=== PATIENT | female | born 1945 | race African-American/Black ===

== ENCOUNTER 2017-11-11 14:25 | Inpatient (IN) | payer OTHER ==
[~2017-11-11] VITALS: Ht 152.4 cm; Wt 80.8 kg
[~2017-11-11 14:25] MED LIST: ASPI-1159 PO; ATOR-2 PO; CARV6.2548 PO; CLOP75TA33 PO; ERGO500013 PO; FURO40TA5 PO; GABA-531 PO; HYDR-4134 PO; INSU100I13 SQ; INSU100I28 SQ; ISOS40TA17 PO; LEVO125T8 PO; MULT-1131 PO; POTA10CA42 PO; SYN150 PO; SYN200 PO
[2017-11-11] MEDS ORDERED: NITROGLYCERIN 0.4MG TABLET SL SL PRN (14:45)
[2017-11-11] MEDS ORDERED: ASPIRIN 81MG TABLET PO ONE (14:45)
[2017-11-11 15:41] LABS: BASOPHILS % 0.9 % (0.0-2.0); EOSINOPHILS % 0.2 % (0.0-5.0); HEMATOCRIT. 33.9 % (36.0-48.0); HEMOGLOBIN. 11.4 g/dL (12.0-16.0); LYMPHOCYTES % 21.3 % (20.0-50.0); MEAN CORPUSCULAR HEMOGLOBIN 29.8 pg (28.0-32.0); MEAN CORPUSCULAR VOLUME 88.6 fL (81.0-99.0); MEAN PLATELET VOLUME 8.7 fl (7.4-10.4); MONOCYTES % 6.9 % (2.0-8.0); NEUTROPHILS % 70.7 % (40.0-76.0); PLATELET 307 x1000/uL (130-400); RED BLOOD CELL COUNT 3.82 mill/uL (4.2-5.4); RED CELL DISTRIBUTION WIDTH 13.3 % (11.6-14.6)
[2017-11-11 15:47] LABS: CHLORIDE 100 mEq/L (98-107)
[2017-11-11 15:48] LABS: PROTHROMBIN TIME 10.5 sec (9.4-11.6)
[2017-11-11] MEDS ORDERED: ENOXAPARIN 80MG/0.8ML SYR SUBCUT ONE (17:30)
[2017-11-11] MEDS ORDERED: FUROSEMIDE 40MG/4ML VIAL IVP ONE (17:30)
[2017-11-11] MEDS ORDERED: ONDANSETRON HCL 4MG/2ML VIAL IV ONE (20:30)
[2017-11-11] MEDS ORDERED: ONDANSETRON HCL 4MG/2ML VIAL IV PRN (21:00)
[2017-11-11] MEDS ORDERED: HYDROCODONE/ACETAMINOPHEN 5/325MG TABLET PO PRN (21:00)
[2017-11-11] MEDS ORDERED: DOCUSATE SODIUM 100MG CAPSULE PO PRN (21:00)
[2017-11-11] MEDS ORDERED: ACETAMINOPHEN 325MG TABLET PO PRN (21:00)
[2017-11-11 22:37] VITALS: BP 139/76
[2017-11-11 22:40] VITALS: BP 139/76
[2017-11-12] VITALS (27 sets, daily range): BP systolic 96–143; BP diastolic 55–88
[2017-11-12 01:10] LABS: CREATINE KINASE MB FRACTION 7.6 ng/mL (0.5-3.6)
[2017-11-12 06:56] LABS: BASOPHILS % 0.4 % (0.0-2.0); EOSINOPHILS % 0.6 % (0.0-5.0); HEMATOCRIT. 29.5 % (36.0-48.0); HEMOGLOBIN. 10.3 g/dL (12.0-16.0); LYMPHOCYTES % 15.3 % (20.0-50.0); MEAN CORPUSCULAR HEMOGLOBIN 30.5 pg (28.0-32.0); MEAN CORPUSCULAR VOLUME 87.4 fL (81.0-99.0); MEAN PLATELET VOLUME 9.4 fl (7.4-10.4); MONOCYTES % 5.5 % (2.0-8.0); NEUTROPHILS % 78.2 % (40.0-76.0); PLATELET 268 x1000/uL (130-400); RED BLOOD CELL COUNT 3.37 mill/uL (4.2-5.4); RED CELL DISTRIBUTION WIDTH 12.9 % (11.6-14.6)
[2017-11-12 07:11] LABS: CHLORIDE 98 mEq/L (98-107)
[2017-11-12 07:28] LABS: LDL CHOLESTEROL 108 mg/dL (5-100)
[2017-11-12 07:30] LABS: CREATINE KINASE 167 IU/L (26-192); HDL CHOLESTEROL 52 mg/dL (40-59)
[2017-11-12 07:33] LABS: CREATINE KINASE MB FRACTION 5.7 ng/mL (0.5-3.6)
[2017-11-12] MEDS ORDERED: FUROSEMIDE 40MG/4ML VIAL IV SCH (09:00)
[2017-11-12] MEDS ORDERED: ENOXAPARIN 40MG/0.4ML SYR SUBCUT SCH (09:00)
[2017-11-12] MEDS ORDERED: ASPIRIN 81MG EC TABLET PO SCH (09:00)
[2017-11-12] MEDS ORDERED: HEPARIN SODIUM 1,000 UNIT/1ML VIAL IV ONE (13:15)
[2017-11-12] MEDS ORDERED: NITROGLYCERIN 0.2MG/HR PATCH TOP SCH (13:45)
[2017-11-12] MEDS ORDERED: ENOXAPARIN 100MG/ML SYR SUBCUT SCH (14:00)
[2017-11-12] MEDS ORDERED: NITROGLYCERIN 50MCG/ML 10ML VIAL (CATH LAB) IV ONE (14:12)
[2017-11-12] MEDS ORDERED: NICARDIPINE 100MCG/ML 10ML VIAL (CATH LAB) IV ONE (14:12)
[2017-11-12] MEDS ORDERED: NITROGLYCERIN 0.4MG TABLET SL SL PRN (14:30)
[2017-11-12] MEDS ORDERED: NITROGLYCERIN 0.4MG TABLET SL SL NR (14:30)
[2017-11-12] MEDS: BLOOD SUGAR DIAGNOSTIC STRIP TEST SCH ×3 (15:00→21:09)
[2017-11-12] MEDS ORDERED: DEXTROSE 50% WATER 50ML SYRINGE IV PRN (15:15)
[2017-11-12] MEDS ORDERED: IODIXANOL 320MG/ML 100 ML BOTTLE IV ONE (15:26)
[2017-11-12] MEDS ORDERED: MIDAZOLAM HCL 2 MG/2 ML VIAL ONE (15:39)
[2017-11-12] MEDS ORDERED: FENTANYL CITRATE/PF 50MCG/ML 2ML VIAL ONE (15:39)
[2017-11-12] MEDS ORDERED: LIDOCAINE HCL/PF 1% 10 MG/ML 5ML VIAL ONE (15:40)
[2017-11-12] MEDS ORDERED: FUROSEMIDE 40MG/4ML VIAL ONE (16:04)
[2017-11-12] MEDS ORDERED: KCL 20MEQ/100ML PREMIX 100 ML IV ONE (16:12)
[2017-11-12] MEDS ORDERED: IOHEXOL-300 100 ML BOTTLE ONE (16:25)
[2017-11-12] MEDS ORDERED: IODIXANOL 320MG/ML 200ML BOTTLE ONE (16:35)
[2017-11-12] MEDS ORDERED: METOPROLOL TARTRATE 5MG/5ML VIAL IV ONE (16:45)
[2017-11-12] MEDS ORDERED: ASPIRIN 325MG TABLET ONE (16:57)
[2017-11-12] MEDS ORDERED: CLOPIDOGREL 75MG TABLET ONE (16:58)
[2017-11-12] MEDS ORDERED: ONDANSETRON HCL 4MG/2ML VIAL IV PRN (17:15)
[2017-11-12] MEDS ORDERED: ATROPINE SULFATE 1MG/10ML SYR IV PRN (17:15)
[2017-11-12] MEDS ORDERED: ACETAMINOPHEN 325MG TABLET PO PRN (17:15)
[2017-11-12] MEDS: INSULIN LISPRO 100 UNITS/ML SUBCUT SCH ×3 (18:20→21:12)
[2017-11-12] MEDS: MORPHINE SULFATE 4 MG/ML CPJ (NOT FOR IM USE) IV PRN (18:52)
[2017-11-12] MEDS ORDERED: CARVEDILOL 3.125 MG TABLET PO SCH (21:00)
[2017-11-12] MEDS: CARVEDILOL 6.25 MG TABLET PO SCH (21:00)
[2017-11-12] MEDS: ATORVASTATIN CALCIUM 20MG TABLET PO SCH (21:13)
[2017-11-12] MEDS: NITROGLYCERIN OINT 1GM/INCH UDPKT TD SCH (22:00)
[2017-11-13] VITALS (25 sets, daily range): BP systolic 91–128; BP diastolic 39–78
[2017-11-13 05:57] LABS: BASOPHILS % 0.5 % (0.0-2.0); EOSINOPHILS % 0.4 % (0.0-5.0); HEMATOCRIT. 27.6 % (36.0-48.0); HEMOGLOBIN. 9.5 g/dL (12.0-16.0); LYMPHOCYTES % 20.3 % (20.0-50.0); MEAN CORPUSCULAR HEMOGLOBIN 30.3 pg (28.0-32.0); MEAN CORPUSCULAR VOLUME 87.5 fL (81.0-99.0); MEAN PLATELET VOLUME 9.4 fl (7.4-10.4); MONOCYTES % 7.7 % (2.0-8.0); NEUTROPHILS % 71.1 % (40.0-76.0); PLATELET 256 x1000/uL (130-400); RED BLOOD CELL COUNT 3.15 mill/uL (4.2-5.4); RED CELL DISTRIBUTION WIDTH 12.6 % (11.6-14.6)
[2017-11-13] MEDS: NITROGLYCERIN OINT 1GM/INCH UDPKT TD SCH ×3 (06:00→22:00)
[2017-11-13] MEDS: BLOOD SUGAR DIAGNOSTIC STRIP TEST SCH ×4 (07:38→21:12)
[2017-11-13] MEDS: CARVEDILOL 6.25 MG TABLET PO SCH ×2 (08:21→21:12)
[2017-11-13] MEDS: FUROSEMIDE 40MG/4ML VIAL IVP SCH ×2 (08:21→17:25)
[2017-11-13] MEDS: ASPIRIN 325MG TABLET PO SCH (08:21)
[2017-11-13] MEDS: CLOPIDOGREL 75MG TABLET PO SCH (08:22)
[2017-11-13] MEDS: LISINOPRIL 5MG TABLET PO SCH (08:22)
[2017-11-13] MEDS: INSULIN LISPRO 100 UNITS/ML SUBCUT SCH ×4 (08:30→22:56)
[2017-11-13] MEDS ORDERED: CLOPIDOGREL 75MG TABLET PO SCH (09:00)
[2017-11-13] MEDS: ATORVASTATIN CALCIUM 20MG TABLET PO SCH (21:11)
[2017-11-13] MEDS: INSULIN GLARGINE UD 100 UNITS/ML SYR SUBCUT SCH (22:55)
[2017-11-14] VITALS (12 sets, daily range): BP systolic 94–112; BP diastolic 55–68
[2017-11-14] MEDS: MORPHINE SULFATE 4 MG/ML CPJ (NOT FOR IM USE) IV PRN (06:03)
[2017-11-14] MEDS: NITROGLYCERIN OINT 1GM/INCH UDPKT TD SCH ×3 (06:12→22:00)
[2017-11-14] MEDS: BLOOD SUGAR DIAGNOSTIC STRIP TEST SCH ×4 (06:12→21:42)
[2017-11-14 06:25] LABS: BASOPHILS % 0.6 % (0.0-2.0); EOSINOPHILS % 0.5 % (0.0-5.0); HEMATOCRIT. 25.7 % (36.0-48.0); HEMOGLOBIN. 8.9 g/dL (12.0-16.0); LYMPHOCYTES % 21.8 % (20.0-50.0); MEAN CORPUSCULAR HEMOGLOBIN 30.3 pg (28.0-32.0); MEAN CORPUSCULAR VOLUME 87.4 fL (81.0-99.0); MEAN PLATELET VOLUME 9.2 fl (7.4-10.4); MONOCYTES % 9.9 % (2.0-8.0); NEUTROPHILS % 67.2 % (40.0-76.0); PLATELET 229 x1000/uL (130-400); RED BLOOD CELL COUNT 2.95 mill/uL (4.2-5.4); RED CELL DISTRIBUTION WIDTH 12.8 % (11.6-14.6)
[2017-11-14] MEDS: INSULIN LISPRO 100 UNITS/ML SUBCUT SCH ×4 (06:25→21:00)
[2017-11-14] MEDS: ASPIRIN 325MG TABLET PO SCH (08:05)
[2017-11-14] MEDS: CLOPIDOGREL 75MG TABLET PO SCH (08:05)
[2017-11-14] MEDS: FUROSEMIDE 40MG/4ML VIAL IVP SCH (08:05)
[2017-11-14] MEDS: CARVEDILOL 6.25 MG TABLET PO SCH (08:06)
[2017-11-14] MEDS: LISINOPRIL 5MG TABLET PO SCH (09:00)
[2017-11-14] MEDS: SODIUM CHLORIDE 0.9% 1,000 ML IV SCH (13:31)
[2017-11-14 17:00] LABS: CLARITY URINE CLOUDY (CLEAR); COLOR URINE YELLOW (YELLOW); KETONES URINE NEGATIVE (NEGATIVE); LEUKOCYTE ESTERASE URINE TRACE (NEGATIVE); NITRITE URINE NEGATIVE (NEGATIVE); OCCULT BLOOD URINE 2+ (NEGATIVE); PROTEIN URINE 4+ (NEGATIVE); SPECIFIC GRAVITY URINE 1.023 (1.005-1.030); UROBILINOGEN URINE 0.2 E.U./dL (0.2-1.0)
[2017-11-14 17:20] LABS: BASOPHILS % 0.8 % (0.0-2.0); EOSINOPHILS % 0.9 % (0.0-5.0); HEMATOCRIT. 26.6 % (36.0-48.0); HEMOGLOBIN. 9.1 g/dL (12.0-16.0); LYMPHOCYTES % 30.5 % (20.0-50.0); MEAN CORPUSCULAR HEMOGLOBIN 30.1 pg (28.0-32.0); MEAN CORPUSCULAR VOLUME 87.9 fL (81.0-99.0); NEUTROPHILS % 57.8 % (40.0-76.0); PLATELET 227 x1000/uL (130-400); RED BLOOD CELL COUNT 3.03 mill/uL (4.2-5.4); RED CELL DISTRIBUTION WIDTH 13.2 % (11.6-14.6)
[2017-11-14] MEDS ORDERED: CEFEPIME HCL 1000MG/VIAL INJ IM SCH (21:00)
[2017-11-14] MEDS: CARVEDILOL 3.125 MG TABLET PO SCH (21:41)
[2017-11-14] MEDS: ATORVASTATIN CALCIUM 20MG TABLET PO SCH (21:42)
[2017-11-14] MEDS: INSULIN GLARGINE UD 100 UNITS/ML SYR SUBCUT SCH (21:54)
[2017-11-14] MEDS: CEFEPIME 1,000 MG in DEXTROSE 5% WATER 50 ML IV SCH (22:28)
[2017-11-15] VITALS (12 sets, daily range): BP systolic 105–128; BP diastolic 45–78
[2017-11-15] MEDS: SODIUM CHLORIDE 0.9% 1,000 ML IV SCH ×2 (03:53→15:32)
[2017-11-15] MEDS: NITROGLYCERIN OINT 1GM/INCH UDPKT TD SCH ×3 (06:00→21:08)
[2017-11-15] MEDS: BLOOD SUGAR DIAGNOSTIC STRIP TEST SCH ×4 (06:30→21:05)
[2017-11-15 06:35] LABS: BASOPHILS % 0.5 % (0.0-2.0); HEMATOCRIT. 25.2 % (36.0-48.0); HEMOGLOBIN. 8.8 g/dL (12.0-16.0); LYMPHOCYTES % 29.8 % (20.0-50.0); MEAN CORPUSCULAR HEMOGLOBIN 30.5 pg (28.0-32.0); MEAN CORPUSCULAR VOLUME 87.1 fL (81.0-99.0); MEAN PLATELET VOLUME 9.2 fl (7.4-10.4); MONOCYTES % 8.9 % (2.0-8.0); NEUTROPHILS % 59.8 % (40.0-76.0); PLATELET 225 x1000/uL (130-400)
[2017-11-15] MEDS: INSULIN LISPRO 100 UNITS/ML SUBCUT SCH ×4 (07:20→21:09)
[2017-11-15] MEDS: MORPHINE SULFATE 4 MG/ML CPJ (NOT FOR IM USE) IV PRN (07:52)
[2017-11-15] MEDS: ASPIRIN 325MG TABLET PO SCH (08:29)
[2017-11-15] MEDS: CARVEDILOL 3.125 MG TABLET PO SCH ×2 (08:29→21:08)
[2017-11-15] MEDS: CLOPIDOGREL 75MG TABLET PO SCH (08:29)
[2017-11-15] MEDS ORDERED: LISINOPRIL 5MG TABLET PO SCH (09:00)
[2017-11-15] MEDS: CEFEPIME 1,000 MG in DEXTROSE 5% WATER 50 ML IV SCH (21:05)
[2017-11-15] MEDS: ATORVASTATIN CALCIUM 20MG TABLET PO SCH (21:05)
[2017-11-15] MEDS: INSULIN GLARGINE UD 100 UNITS/ML SYR SUBCUT SCH (21:09)
[2017-11-16] VITALS (14 sets, daily range): BP systolic 115–130; BP diastolic 67–79
[2017-11-16] MEDS: SODIUM CHLORIDE 0.9% 1,000 ML IV SCH ×2 (05:50→21:43)
[2017-11-16] MEDS: NITROGLYCERIN OINT 1GM/INCH UDPKT TD SCH ×3 (05:54→21:38)
[2017-11-16] MEDS: BLOOD SUGAR DIAGNOSTIC STRIP TEST SCH ×4 (05:55→21:39)
[2017-11-16] MEDS: INSULIN LISPRO 100 UNITS/ML SUBCUT SCH ×4 (06:23→21:00)
[2017-11-16 06:59] LABS: HEMATOCRIT 27.3 % (36.0-48.0); HEMOGLOBIN 9.6 g/dL (12.0-16.0); MEAN CORPUSCULAR HEMOGLOBIN 30.3 pg (28.0-32.0); MEAN CORPUSCULAR VOLUME 86.3 fL (81.0-99.0); PLATELET 261 x1000/uL (130-400); RED BLOOD CELL COUNT 3.16 mill/uL (4.2-5.4); RED CELL DISTRIBUTION WIDTH 12.9 % (11.6-14.6)
[2017-11-16] MEDS: ASPIRIN 325MG TABLET PO SCH (08:00)
[2017-11-16] MEDS: CARVEDILOL 3.125 MG TABLET PO SCH ×2 (08:00→21:37)
[2017-11-16] MEDS: CLOPIDOGREL 75MG TABLET PO SCH (08:00)
[2017-11-16] MEDS: ATORVASTATIN CALCIUM 20MG TABLET PO SCH (21:37)
[2017-11-16] MEDS: CEFEPIME 1,000 MG in DEXTROSE 5% WATER 50 ML IV SCH (21:43)
[2017-11-16] MEDS: INSULIN GLARGINE UD 100 UNITS/ML SYR SUBCUT SCH (21:45)
[2017-11-17] VITALS (9 sets, daily range): BP systolic 105–150; BP diastolic 62–95
[2017-11-17] MEDS: NITROGLYCERIN OINT 1GM/INCH UDPKT TD SCH ×2 (05:45→13:36)
[2017-11-17] MEDS: BLOOD SUGAR DIAGNOSTIC STRIP TEST SCH ×2 (05:56→12:17)
[2017-11-17 06:54] LABS: BASOPHILS % 0.6 % (0.0-2.0); EOSINOPHILS % 0.9 % (0.0-5.0); HEMATOCRIT. 25.9 % (36.0-48.0); HEMOGLOBIN. 9.1 g/dL (12.0-16.0); LYMPHOCYTES % 24.9 % (20.0-50.0); MEAN CORPUSCULAR HEMOGLOBIN 30.6 pg (28.0-32.0); MEAN CORPUSCULAR VOLUME 87.1 fL (81.0-99.0); MEAN PLATELET VOLUME 8.9 fl (7.4-10.4); MONOCYTES % 8.2 % (2.0-8.0); NEUTROPHILS % 65.4 % (40.0-76.0); PLATELET 288 x1000/uL (130-400); RED BLOOD CELL COUNT 2.97 mill/uL (4.2-5.4); RED CELL DISTRIBUTION WIDTH 12.8 % (11.6-14.6)
[2017-11-17 07:01] LABS: CHLORIDE 105 mEq/L (98-107)
[2017-11-17] MEDS: INSULIN LISPRO 100 UNITS/ML SUBCUT SCH ×2 (07:20→12:20)
[2017-11-17] MEDS: ASPIRIN 325MG TABLET PO SCH (08:04)
[2017-11-17] MEDS: CLOPIDOGREL 75MG TABLET PO SCH (08:05)
[2017-11-17] MEDS: CARVEDILOL 3.125 MG TABLET PO SCH (08:05)
[2017-11-17] MEDS ORDERED: POTASSIUM CHLORIDE 20MEQ TABLET SR PO SCH (08:30)
[2017-11-17] MEDS ORDERED: FLUCONAZOLE 100MG/50ML PREMIX IV ONE (11:30)
[2017-11-17] MEDS ORDERED: FLUCONAZOLE 100MG/50ML in BAG IV NR (14:00)
[2017-11-18] MEDS ORDERED: ASPI-867 MT (15:26)
[2017-11-18] MEDS ORDERED: CARV3.1242 MT (15:26)
[2017-11-18] MEDS ORDERED: LEVO150T8 MT (15:26)
[2017-11-18] MEDS ORDERED: ATOR20TA65 MT (15:26)
== END 2017-11-17 16:10 | disposition home health service (06) | DRG 246 ==
LOC: ER 14:25 → EDBEDREQ 17:46 → EDBEDREQTM 17:46 → CANRESERV 19:52 → ENRESERV 19:52 → EDBEDREQTM 20:15 → EDBEDREQSVC 20:15 → EDBEDREQ 20:15 → ENRESERV 20:23 → 5EST 22:12 → EDBEDREQTM 22:17 → CVICU 11-12 16:40 → 3WST 11-13 18:21
PROVIDERS: ADMIT Hospitalist; ATTEND Hospitalist
PROC: 4A023N7 Measurement of Cardiac Sampling and Pressure, Left Heart, Percutaneous Approach (ICD-10-PCS; principal; 2017-11-12)
PROC: 027034Z Dilation of Coronary Artery, One Artery with Drug-eluting Intraluminal Device, Percutaneous Approach (ICD-10-PCS; 2017-11-12)
PROC: B2111ZZ Fluoroscopy of Multiple Coronary Arteries using Low Osmolar Contrast (ICD-10-PCS; 2017-11-12)
DX: I21.4 Non-ST elevation (NSTEMI) myocardial infarction (principal); I50.31 Acute diastolic (congestive) heart failure; I13.0 Hypertensive heart and chronic kidney disease with heart failure and stage 1 through stage 4 chronic kidney disease, or unspecified chronic kidney disease; N17.9 Acute kidney failure, unspecified; N39.0 Urinary tract infection, site not specified; E87.1 Hypo-osmolality and hyponatremia; B49 Unspecified mycosis; R80.9 Proteinuria, unspecified; D64.9 Anemia, unspecified; Z82.49 Family history of ischemic heart disease and other diseases of the circulatory system; L50.9 Urticaria, unspecified; I25.2 Old myocardial infarction; I25.110 Atherosclerotic heart disease of native coronary artery with unstable angina pectoris; E78.00 Pure hypercholesterolemia, unspecified; N18.1 Chronic kidney disease, stage 1; E11.22 Type 2 diabetes mellitus with diabetic chronic kidney disease; E78.5 Hyperlipidemia, unspecified; Z88.0 Allergy status to penicillin; Z88.2 Allergy status to sulfonamides; Z79.4 Long term (current) use of insulin; Z79.82 Long term (current) use of aspirin; Z90.710 Acquired absence of both cervix and uterus; Z95.5 Presence of coronary angioplasty implant and graft; Z79.899 Other long term (current) drug therapy; Z85.42 Personal history of malignant neoplasm of other parts of uterus; Z98.1 Arthrodesis status; Z83.6 Family history of other diseases of the respiratory system
CPT/HCPCS: 36415; 71045; 76770; 80048; 80053; 80061; 81003; 82550; 82553; 82570; 82962; 83735; 83880; 84156; 84484; 85025; 85027; 85347; 85610; 87086; 92928; 93005; 93306; 93458; 93970; 96374; 96376; 97162; 97166; 99291; C1725; C1760; C1769; C1874; C1887; C1893; J0692; J1450; J1644; J1650; J1815; J1940; J2250; J2270; J2405; J3010; J3480; J3490; J7030; J7060; Q9967; A4315

== ENCOUNTER 2017-12-13 00:53 | Inpatient (IN) | payer OTHER ==
[~2017-12-13] VITALS: Ht 152.4 cm; Wt 84.4 kg
[~2017-12-13 00:53] MED LIST changes: -ASPI-1159 PO; +ASPI-867 MT; -ATOR-2 PO; +ATOR20TA65 MT; +CARV3.1242 MT; -CARV6.2548 PO; -HYDR-4134 PO; -LEVO125T8 PO; +LEVO150T8 MT; -POTA10CA42 PO; -SYN150 PO; -SYN200 PO
[2017-12-13] MEDS ORDERED: ACETAMINOPHEN 325MG TABLET PO STA (01:20)
[2017-12-13] MEDS ORDERED: NITROGLYCERIN OINT 1GM/INCH UDPKT TD ONE (01:30)
[2017-12-13] MEDS ORDERED: ASPIRIN 81MG TABLET PO ONE (01:30)
[2017-12-13] MEDS ORDERED: LEVOFLOXACIN 750MG PREMIX 150 ML IV ONE (02:15)
[2017-12-13] MEDS ORDERED: ALBUTEROL (0.083%) 2.5MG/3ML NEB HHN STA (02:56)
[2017-12-13] MEDS ORDERED: IPRATROPIUM BROMIDE (0.02%) 0.5MG/2.5ML NEB HHN STA (02:56)
[2017-12-13 03:01] LABS: CHLORIDE 97 mEq/L (98-107)
[2017-12-13 03:02] LABS: BASOPHILS % 0.7 % (0.0-2.0); EOSINOPHILS % 0.3 % (0.0-5.0); HEMOGLOBIN. 9.6 g/dL (12.0-16.0); LYMPHOCYTES % 11.3 % (20.0-50.0); MEAN CORPUSCULAR HEMOGLOBIN 30.3 pg (28.0-32.0); MEAN PLATELET VOLUME 9.7 fl (7.4-10.4); MONOCYTES % 4.8 % (2.0-8.0); NEUTROPHILS % 82.9 % (40.0-76.0); PLATELET 224 x1000/uL (130-400); RED BLOOD CELL COUNT 3.18 mill/uL (4.2-5.4); RED CELL DISTRIBUTION WIDTH 13.6 % (11.6-14.6)
[2017-12-13 03:03] LABS: INR 1.1; PROTHROMBIN TIME 11.1 sec (9.4-11.6)
[2017-12-13 03:05] LABS: ETHANOL BLOOD < 10 mg/dL
[2017-12-13] MEDS ORDERED: ACETAMINOPHEN 325MG TABLET ONE (03:26)
[2017-12-13] MEDS ORDERED: INSULIN REGULAR (HUMULIN R) 300UNITS/3ML SUBCUT SCH (05:46)
[2017-12-13] MEDS ORDERED: ONDANSETRON HCL 4MG/2ML VIAL IV PRN (06:15)
[2017-12-13] MEDS ORDERED: ACETAMINOPHEN 325MG TABLET PO PRN (06:15)
[2017-12-13] MEDS ORDERED: DOCUSATE SODIUM 100MG CAPSULE PO PRN (06:15)
[2017-12-13] MEDS ORDERED: CLONIDINE 0.1MG TABLET PO PRN (06:15)
[2017-12-13 07:40] VITALS: BP 143/82
[2017-12-13 08:00] VITALS: BP 143/82
[2017-12-13] MEDS: AMLODIPINE 10MG TABLET PO SCH (08:59)
[2017-12-13] MEDS ORDERED: ASPIRIN 81MG EC TABLET PO SCH (09:00)
[2017-12-13] MEDS ORDERED: FUROSEMIDE 40MG/4ML VIAL IV SCH ×2 (09:00→17:00)
[2017-12-13] MEDS ORDERED: ONDANSETRON 4MG ODT PO PRN (09:00)
[2017-12-13] MEDS: CLOPIDOGREL 75MG TABLET PO SCH (09:00)
[2017-12-13] MEDS ORDERED: NON FORMULARY PATIENT HOME MED EA XX SCH (11:00)
[2017-12-13] MEDS: INSULIN GLARGINE UD 100 UNITS/ML SYR SUBCUT SCH (11:27)
[2017-12-13] MEDS: LEVOTHYROXINE SODIUM 150MCG TABLET PO SCH (11:27)
[2017-12-13] MEDS: SPIRONOLACTONE 25MG TABLET PO SCH ×2 (11:29→16:46)
[2017-12-13 12:00] VITALS: BP 114/60
[2017-12-13 12:32] VITALS: BP 114/60
[2017-12-13] MEDS: BLOOD SUGAR DIAGNOSTIC STRIP TEST SCH ×3 (13:00→21:40)
[2017-12-13] MEDS ORDERED: DEXTROSE 50% WATER 50ML SYRINGE IV PRN (13:00)
[2017-12-13] MEDS: INSULIN LISPRO 100 UNITS/ML SUBCUT SCH ×3 (13:08→21:00)
[2017-12-13] MEDS: HYDROCODONE/ACETAMINOPHEN 5/325MG TABLET PO PRN (14:08)
[2017-12-13 16:00] VITALS: BP 97/59
[2017-12-13] MEDS: FUROSEMIDE 40MG/4ML VIAL IV SCH (16:45)
[2017-12-13 20:18] VITALS: BP 108/109
[2017-12-13] MEDS: ATORVASTATIN CALCIUM 20MG TABLET PO SCH (21:50)
[2017-12-14] VITALS: BP 101/51
[2017-12-14 04:00] VITALS: BP 104/60
[2017-12-14] MEDS: HYDROCODONE/ACETAMINOPHEN 5/325MG TABLET PO PRN (05:11)
[2017-12-14] MEDS: BLOOD SUGAR DIAGNOSTIC STRIP TEST SCH ×4 (05:19→21:24)
[2017-12-14 06:57] LABS: CLARITY URINE CLEAR (CLEAR); COLOR URINE YELLOW (YELLOW); KETONES URINE NEGATIVE (NEGATIVE); LEUKOCYTE ESTERASE URINE TRACE (NEGATIVE); NITRITE URINE NEGATIVE (NEGATIVE); OCCULT BLOOD URINE NEGATIVE (NEGATIVE); PROTEIN URINE 2+ (NEGATIVE); SPECIFIC GRAVITY URINE 1.014 (1.005-1.030); UROBILINOGEN URINE 0.2 E.U./dL (0.2-1.0)
[2017-12-14 07:08] LABS: *AMPHETAMINES SCREEN URINE NEGATIVE (NEGATIVE); *BARBITURATES SCREEN URINE NEGATIVE (NEGATIVE); *BENZODIAZEPINES SCREEN URINE NEGATIVE (NEGATIVE)
[2017-12-14 07:09] LABS: *COCAINE SCREEN URINE NEGATIVE (NEGATIVE); CANNABINOID URINE SCREEN NEGATIVE (NEGATIVE); METHADONE URINE SCREEN NEGATIVE (NEGATIVE); OPIATES URINE SCREEN PRESUMTIVE POSITIVE (NEGATIVE); PHENCYCLIDINE URINE SCREEN NEGATIVE (NEGATIVE)
[2017-12-14 07:37] LABS: BASOPHILS % 1.1 % (0.0-2.0); EOSINOPHILS % 1.9 % (0.0-5.0); HEMATOCRIT. 27.4 % (36.0-48.0); HEMOGLOBIN. 9.3 g/dL (12.0-16.0); LYMPHOCYTES % 23.9 % (20.0-50.0); MEAN CORPUSCULAR HEMOGLOBIN 30.3 pg (28.0-32.0); MEAN CORPUSCULAR VOLUME 89.3 fL (81.0-99.0); MEAN PLATELET VOLUME 10.3 fl (7.4-10.4); MONOCYTES % 9.3 % (2.0-8.0); NEUTROPHILS % 63.8 % (40.0-76.0); PLATELET 175 x1000/uL (130-400); RED BLOOD CELL COUNT 3.07 mill/uL (4.2-5.4); RED CELL DISTRIBUTION WIDTH 13.7 % (11.6-14.6)
[2017-12-14 07:46] VITALS: BP 109/60
[2017-12-14] MEDS: INSULIN LISPRO 100 UNITS/ML SUBCUT SCH ×4 (08:10→21:29)
[2017-12-14 08:12] LABS: CHLORIDE 98 mEq/L (98-107)
[2017-12-14] MEDS: LEVOTHYROXINE SODIUM 150MCG TABLET PO SCH (08:22)
[2017-12-14] MEDS: CLOPIDOGREL 75MG TABLET PO SCH (08:22)
[2017-12-14] MEDS: AMLODIPINE 10MG TABLET PO SCH (08:22)
[2017-12-14] MEDS: ASPIRIN 325MG EC TABLET PO SCH (08:22)
[2017-12-14] MEDS: SPIRONOLACTONE 25MG TABLET PO SCH ×2 (08:22→17:24)
[2017-12-14 08:23] LABS: CREATINE KINASE MB FRACTION 2.4 ng/mL (0.5-3.6)
[2017-12-14] MEDS: ENTRESTO PO SCH ×2 (08:23→21:29)
[2017-12-14] MEDS: FUROSEMIDE 40MG/4ML VIAL IV SCH ×2 (08:23→17:24)
[2017-12-14 08:25] LABS: LDL CHOLESTEROL 77 mg/dL (5-100)
[2017-12-14 08:26] LABS: CREATINE KINASE 156 IU/L (26-192); HDL CHOLESTEROL 62 mg/dL (40-59); T4 FREE 1.08 ng/dL (0.76-1.46)
[2017-12-14] MEDS: INSULIN GLARGINE UD 100 UNITS/ML SYR SUBCUT SCH ×2 (10:00→13:26)
[2017-12-14 12:10] VITALS: BP 120/68
[2017-12-14] MEDS ORDERED: METOLAZONE 2.5MG TABLET PO NR (15:15)
[2017-12-14 16:06] VITALS: BP 129/73
[2017-12-14] MEDS ORDERED: MAGNESIUM 2 G PREMIX 50 ML IV NR (17:00)
[2017-12-14 20:00] VITALS: BP 106/59
[2017-12-14] MEDS: ATORVASTATIN CALCIUM 20MG TABLET PO SCH (21:22)
[2017-12-15] VITALS: BP 128/71
[2017-12-15] MEDS: HYDROCODONE/ACETAMINOPHEN 5/325MG TABLET PO PRN (03:43)
[2017-12-15 04:00] VITALS: BP 106/63
[2017-12-15 05:51] LABS: HEMATOCRIT. 26.7 % (36.0-48.0); HEMOGLOBIN. 9.2 g/dL (12.0-16.0); LYMPHOCYTES % 30.6 % (20.0-50.0); MEAN CORPUSCULAR HEMOGLOBIN 30.5 pg (28.0-32.0); MEAN PLATELET VOLUME 9.7 fl (7.4-10.4); MONOCYTES % 11.5 % (2.0-8.0); NEUTROPHILS % 53.9 % (40.0-76.0); PLATELET 221 x1000/uL (130-400); RED CELL DISTRIBUTION WIDTH 13.4 % (11.6-14.6)
[2017-12-15] MEDS: BLOOD SUGAR DIAGNOSTIC STRIP TEST SCH ×4 (05:56→20:31)
[2017-12-15 06:14] LABS: CHLORIDE 100 mEq/L (98-107)
[2017-12-15 08:00] VITALS: BP 124/62
[2017-12-15] MEDS: INSULIN LISPRO 100 UNITS/ML SUBCUT SCH ×4 (08:10→20:37)
[2017-12-15] MEDS: ASPIRIN 325MG EC TABLET PO SCH (09:20)
[2017-12-15] MEDS: LEVOTHYROXINE SODIUM 150MCG TABLET PO SCH (09:20)
[2017-12-15] MEDS: SPIRONOLACTONE 25MG TABLET PO SCH ×2 (09:20→17:47)
[2017-12-15] MEDS: CLOPIDOGREL 75MG TABLET PO SCH (09:21)
[2017-12-15] MEDS: AMLODIPINE 10MG TABLET PO SCH (09:21)
[2017-12-15] MEDS: FUROSEMIDE 40MG/4ML VIAL IV SCH ×2 (09:23→17:50)
[2017-12-15] MEDS: ENTRESTO PO SCH ×2 (09:41→20:31)
[2017-12-15] MEDS: INSULIN GLARGINE UD 100 UNITS/ML SYR SUBCUT SCH (11:34)
[2017-12-15 12:00] VITALS: BP 105/44
[2017-12-15 16:00] VITALS: BP 137/70
[2017-12-15 20:00] VITALS: BP 99/58
[2017-12-15] MEDS: ATORVASTATIN CALCIUM 20MG TABLET PO SCH (20:31)
[2017-12-16] VITALS: BP 102/47
[2017-12-16 04:00] VITALS: BP 96/50
[2017-12-16] MEDS: HYDROCODONE/ACETAMINOPHEN 5/325MG TABLET PO PRN ×2 (05:49→21:41)
[2017-12-16] MEDS: BLOOD SUGAR DIAGNOSTIC STRIP TEST SCH ×3 (05:49→20:45)
[2017-12-16 07:14] LABS: BASOPHILS % 0.9 % (0.0-2.0); EOSINOPHILS % 2.7 % (0.0-5.0); HEMATOCRIT. 31.5 % (36.0-48.0); HEMOGLOBIN. 10.8 g/dL (12.0-16.0); LYMPHOCYTES % 31.7 % (20.0-50.0); MEAN CORPUSCULAR HEMOGLOBIN 30.3 pg (28.0-32.0); MEAN CORPUSCULAR VOLUME 88.8 fL (81.0-99.0); MEAN PLATELET VOLUME 9.6 fl (7.4-10.4); MONOCYTES % 12.3 % (2.0-8.0); NEUTROPHILS % 52.4 % (40.0-76.0); PLATELET 240 x1000/uL (130-400); RED BLOOD CELL COUNT 3.55 mill/uL (4.2-5.4); RED CELL DISTRIBUTION WIDTH 13.4 % (11.6-14.6)
[2017-12-16 08:00] VITALS: BP 120/61
[2017-12-16] MEDS: INSULIN LISPRO 100 UNITS/ML SUBCUT SCH ×3 (08:10→20:45)
[2017-12-16] MEDS: LEVOTHYROXINE SODIUM 150MCG TABLET PO SCH (08:35)
[2017-12-16] MEDS: AMLODIPINE 10MG TABLET PO SCH (08:54)
[2017-12-16] MEDS: ASPIRIN 325MG EC TABLET PO SCH (08:55)
[2017-12-16] MEDS: CLOPIDOGREL 75MG TABLET PO SCH (08:55)
[2017-12-16] MEDS: SPIRONOLACTONE 25MG TABLET PO SCH ×2 (08:55→16:57)
[2017-12-16] MEDS: ENTRESTO PO SCH ×2 (08:59→20:41)
[2017-12-16] MEDS: FUROSEMIDE 40MG/4ML VIAL IV SCH ×2 (09:10→16:57)
[2017-12-16] MEDS ORDERED: POTASSIUM CHLORIDE 20MEQ TABLET SR PO NR (09:30)
[2017-12-16] MEDS: INSULIN GLARGINE UD 100 UNITS/ML SYR SUBCUT SCH (10:16)
[2017-12-16 12:00] VITALS: BP 118/64
[2017-12-16 16:00] VITALS: BP 115/66
[2017-12-16] MEDS: POTASSIUM CHLORIDE 20MEQ TABLET SR PO SCH (16:57)
[2017-12-16 20:00] VITALS: BP 116/63
[2017-12-16] MEDS: ATORVASTATIN CALCIUM 20MG TABLET PO SCH (20:40)
[2017-12-17] VITALS: BP 112/49
[2017-12-17] MEDS: FUROSEMIDE 40MG/4ML VIAL IV SCH ×2 (01:59→09:15)
[2017-12-17 04:00] VITALS: BP 120/56
[2017-12-17] MEDS: BLOOD SUGAR DIAGNOSTIC STRIP TEST SCH ×2 (06:25→12:40)
[2017-12-17 06:29] LABS: BASOPHILS % 0.9 % (0.0-2.0); EOSINOPHILS % 2.1 % (0.0-5.0); HEMATOCRIT. 32.8 % (36.0-48.0); LYMPHOCYTES % 33.7 % (20.0-50.0); MEAN CORPUSCULAR HEMOGLOBIN 29.7 pg (28.0-32.0); MEAN CORPUSCULAR VOLUME 88.2 fL (81.0-99.0); MEAN PLATELET VOLUME 9.5 fl (7.4-10.4); MONOCYTES % 11.7 % (2.0-8.0); NEUTROPHILS % 51.6 % (40.0-76.0); PLATELET 265 x1000/uL (130-400); RED BLOOD CELL COUNT 3.72 mill/uL (4.2-5.4); RED CELL DISTRIBUTION WIDTH 13.4 % (11.6-14.6)
[2017-12-17 06:30] LABS: CHLORIDE 97 mEq/L (98-107)
[2017-12-17] MEDS: LEVOTHYROXINE SODIUM 150MCG TABLET PO SCH (06:54)
[2017-12-17] MEDS: INSULIN LISPRO 100 UNITS/ML SUBCUT SCH ×2 (07:18→13:18)
[2017-12-17 08:00] VITALS: BP 100/58
[2017-12-17] MEDS: SPIRONOLACTONE 25MG TABLET PO SCH (08:47)
[2017-12-17] MEDS: POTASSIUM CHLORIDE 20MEQ TABLET SR PO SCH (08:47)
[2017-12-17] MEDS: ASPIRIN 325MG EC TABLET PO SCH (08:47)
[2017-12-17] MEDS: CLOPIDOGREL 75MG TABLET PO SCH (08:47)
[2017-12-17] MEDS: ENTRESTO PO SCH (08:49)
[2017-12-17] MEDS: AMLODIPINE 10MG TABLET PO SCH (09:00)
[2017-12-17] MEDS: INSULIN GLARGINE UD 100 UNITS/ML SYR SUBCUT SCH (10:13)
[2017-12-17 11:44] VITALS: BP 115/60
[2017-12-17 12:00] VITALS: BP 125/66
[2017-12-17] MEDS ORDERED: SACU1TAB PO (12:15)
== END 2017-12-17 15:20 | disposition home or self-care (01) | DRG 291 ==
LOC: ER 01:00 → EDBEDREQ 03:05 → ENRESERV 04:01 → 7WST 08:48
PROVIDERS: ADMIT Hospitalist; ATTEND Hospitalist
DX: I13.0 Hypertensive heart and chronic kidney disease with heart failure and stage 1 through stage 4 chronic kidney disease, or unspecified chronic kidney disease (principal); I50.23 Acute on chronic systolic (congestive) heart failure; J18.9 Pneumonia, unspecified organism; E46 Unspecified protein-calorie malnutrition; I42.0 Dilated cardiomyopathy; I25.5 Ischemic cardiomyopathy; I27.20 Pulmonary hypertension, unspecified; E11.22 Type 2 diabetes mellitus with diabetic chronic kidney disease; E11.65 Type 2 diabetes mellitus with hyperglycemia; E03.9 Hypothyroidism, unspecified; E78.00 Pure hypercholesterolemia, unspecified; N18.9 Chronic kidney disease, unspecified; I25.10 Atherosclerotic heart disease of native coronary artery without angina pectoris; K76.1 Chronic passive congestion of liver; I34.0 Nonrheumatic mitral (valve) insufficiency; I50.82 Biventricular heart failure; Z79.02 Long term (current) use of antithrombotics/antiplatelets; Z95.5 Presence of coronary angioplasty implant and graft; Z79.4 Long term (current) use of insulin; I25.2 Old myocardial infarction; Z90.710 Acquired absence of both cervix and uterus; Z79.899 Other long term (current) drug therapy; Z88.0 Allergy status to penicillin; Z88.2 Allergy status to sulfonamides; Z79.82 Long term (current) use of aspirin; Z68.36 Body mass index [BMI] 36.0-36.9, adult
CPT/HCPCS: 36415; 71045; 80048; 80053; 80061; 80305; 81003; 82550; 82553; 82962; 83605; 83690; 83735; 83880; 84439; 84443; 84484; 85025; 85610; 87040; 87086; 93005; 93306; 93970; 96365; 96372; 97162; 99285; C1893; G0482; J1815; J1940; J1956; J3475; J7611

== ENCOUNTER 2017-12-26 15:16 | Inpatient (IN) | payer MEDICARE, OTHER ==
[~2017-12-26] VITALS: Ht 172.7 cm; Wt 80.7 kg
[~2017-12-26 15:16] MED LIST changes: -FURO40TA5 PO; +SACU1TAB PO
[2017-12-26] MEDS ORDERED: NITROGLYCERIN OINT 1GM/INCH UDPKT TD NR (19:30)
[2017-12-26] MEDS ORDERED: INSULIN GLARGINE UD 100 UNITS/ML SYR SUBCUT ONE (20:00)
[2017-12-26 21:21] LABS: EOSINOPHILS % 1.3 % (0.0-5.0); HEMATOCRIT. 33.7 % (36.0-48.0); HEMOGLOBIN. 11.3 g/dL (12.0-16.0); LYMPHOCYTES % 20.4 % (20.0-50.0); MEAN CORPUSCULAR VOLUME 89.5 fL (81.0-99.0); MEAN PLATELET VOLUME 9.9 fl (7.4-10.4); MONOCYTES % 7.3 % (2.0-8.0); PLATELET 287 x1000/uL (130-400); RED BLOOD CELL COUNT 3.76 mill/uL (4.2-5.4); RED CELL DISTRIBUTION WIDTH 13.4 % (11.6-14.6)
[2017-12-26 21:25] LABS: CHLORIDE 96 mEq/L (98-107)
[2017-12-26 22:00] VITALS: BP 145/78
[2017-12-26] MEDS ORDERED: DOCUSATE SODIUM 100MG CAPSULE PO PRN (22:00)
[2017-12-26] MEDS ORDERED: ONDANSETRON 4MG ODT PO PRN (22:00)
[2017-12-26] MEDS ORDERED: GUAIFENESIN 200MG/10ML SUGAR FREE UDC PO PRN (22:00)
[2017-12-26] MEDS ORDERED: DOBUTAMINE 250MG PREMIX 250 ML IV SCH (22:00)
[2017-12-26] MEDS ORDERED: ACETAMINOPHEN 325MG TABLET PO PRN (22:00)
[2017-12-26] MEDS ORDERED: ONDANSETRON HCL 4MG/2ML VIAL IV PRN (22:00)
[2017-12-26] MEDS ORDERED: DEXTROSE 50% WATER 50ML SYRINGE IV PRN (22:15)
[2017-12-26] MEDS: ATORVASTATIN CALCIUM 20MG TABLET PO SCH (22:23)
[2017-12-26] MEDS: HYDRALAZINE HCL 100MG TABLET PO SCH (22:23)
[2017-12-26] MEDS: NITROGLYCERIN OINT 1GM/INCH UDPKT TD SCH (22:24)
[2017-12-26] MEDS: BLOOD SUGAR DIAGNOSTIC STRIP TEST SCH (22:59)
[2017-12-26] MEDS: INSULIN LISPRO 100 UNITS/ML SUBCUT SCH (22:59)
[2017-12-26] MEDS: DOBUTAMINE 250MG PREMIX 250 ML IV SCH (23:00)
[2017-12-26] MEDS: FUROSEMIDE 40MG/4ML VIAL IVP SCH ×2 (23:30→23:45)
[2017-12-27] VITALS (13 sets, daily range): BP systolic 88–134; BP diastolic 45–65
[2017-12-27] MEDS: HYDRALAZINE HCL 100MG TABLET PO SCH (06:00)
[2017-12-27] MEDS: NITROGLYCERIN OINT 1GM/INCH UDPKT TD SCH ×3 (06:00→21:26)
[2017-12-27 06:29] LABS: BASOPHILS % 0.9 % (0.0-2.0); EOSINOPHILS % 0.9 % (0.0-5.0); HEMATOCRIT. 30.4 % (36.0-48.0); HEMOGLOBIN. 10.5 g/dL (12.0-16.0); LYMPHOCYTES % 16.1 % (20.0-50.0); MEAN CORPUSCULAR HEMOGLOBIN 30.2 pg (28.0-32.0); MEAN CORPUSCULAR VOLUME 87.8 fL (81.0-99.0); MEAN PLATELET VOLUME 10.1 fl (7.4-10.4); NEUTROPHILS % 75.1 % (40.0-76.0); PLATELET 258 x1000/uL (130-400); RED BLOOD CELL COUNT 3.47 mill/uL (4.2-5.4); RED CELL DISTRIBUTION WIDTH 13.4 % (11.6-14.6)
[2017-12-27] MEDS: BLOOD SUGAR DIAGNOSTIC STRIP TEST SCH ×4 (07:49→21:35)
[2017-12-27] MEDS: CARVEDILOL 3.125 MG TABLET PO SCH ×2 (08:44→21:00)
[2017-12-27] MEDS: FUROSEMIDE 40MG/4ML VIAL IVP SCH (08:44)
[2017-12-27] MEDS: INSULIN LISPRO 100 UNITS/ML SUBCUT SCH ×4 (08:45→23:17)
[2017-12-27] MEDS: ASPIRIN 81MG EC TABLET PO SCH (08:45)
[2017-12-27] MEDS ORDERED: FUROSEMIDE 40MG/4ML VIAL IVP SCH (09:00)
[2017-12-27] MEDS: DOBUTAMINE 250MG PREMIX 250 ML IV SCH ×2 (09:38→20:49)
[2017-12-27] MEDS: CLOPIDOGREL 75MG TABLET PO SCH (09:47)
[2017-12-27] MEDS ORDERED: POTASSIUM CHLORIDE 20MEQ TABLET SR PO NR (11:00)
[2017-12-27 14:35] LABS: T4 FREE 1.04 ng/dL (0.76-1.46)
[2017-12-27] MEDS: HYDRALAZINE HCL 50MG TABLET PO SCH ×2 (15:25→21:29)
[2017-12-27] MEDS: ATORVASTATIN CALCIUM 20MG TABLET PO SCH (21:26)
[2017-12-27] MEDS: INSULIN GLARGINE UD 100 UNITS/ML SYR SUBCUT SCH (23:11)
[2017-12-27 23:26] LABS: COLOR URINE YELLOW (YELLOW); KETONES URINE NEGATIVE (NEGATIVE); LEUKOCYTE ESTERASE URINE 1+ (NEGATIVE); NITRITE URINE NEGATIVE (NEGATIVE); OCCULT BLOOD URINE NEGATIVE (NEGATIVE); PROTEIN URINE 3+ (NEGATIVE); SPECIFIC GRAVITY URINE 1.018 (1.005-1.030); UROBILINOGEN URINE 0.2 E.U./dL (0.2-1.0)
[2017-12-27 23:33] LABS: CLARITY URINE SL HAZY (CLEAR)
[2017-12-28] VITALS (10 sets, daily range): BP systolic 104–142; BP diastolic 50–77
[2017-12-28] MEDS: HYDRALAZINE HCL 50MG TABLET PO SCH ×3 (06:00→21:30)
[2017-12-28 06:20] LABS: BASOPHILS % 0.7 % (0.0-2.0); EOSINOPHILS % 1.3 % (0.0-5.0); HEMATOCRIT. 29.1 % (36.0-48.0); HEMOGLOBIN. 9.8 g/dL (12.0-16.0); LYMPHOCYTES % 20.6 % (20.0-50.0); MEAN CORPUSCULAR HEMOGLOBIN 29.9 pg (28.0-32.0); MEAN CORPUSCULAR VOLUME 88.4 fL (81.0-99.0); MEAN PLATELET VOLUME 10.1 fl (7.4-10.4); MONOCYTES % 8.8 % (2.0-8.0); NEUTROPHILS % 68.6 % (40.0-76.0); PLATELET 257 x1000/uL (130-400); RED BLOOD CELL COUNT 3.29 mill/uL (4.2-5.4); RED CELL DISTRIBUTION WIDTH 13.6 % (11.6-14.6)
[2017-12-28] MEDS: DOBUTAMINE 250MG PREMIX 250 ML IV SCH (06:23)
[2017-12-28] MEDS: BLOOD SUGAR DIAGNOSTIC STRIP TEST SCH ×4 (07:39→21:30)
[2017-12-28] MEDS: INSULIN LISPRO 100 UNITS/ML SUBCUT SCH ×4 (07:39→21:31)
[2017-12-28] MEDS: NITROGLYCERIN OINT 1GM/INCH UDPKT TD SCH ×2 (09:00→21:27)
[2017-12-28] MEDS: FUROSEMIDE 40MG/4ML VIAL IVP SCH (09:43)
[2017-12-28] MEDS: ASPIRIN 81MG EC TABLET PO SCH (09:43)
[2017-12-28] MEDS: CLOPIDOGREL 75MG TABLET PO SCH (09:43)
[2017-12-28] MEDS: CARVEDILOL 3.125 MG TABLET PO SCH ×2 (09:43→21:00)
[2017-12-28] MEDS ORDERED: LEVOTHYROXINE SODIUM 75MCG TABLET PO NR (11:30)
[2017-12-28] MEDS ORDERED: POTASSIUM CHLORIDE 20MEQ TABLET SR PO NR (11:45)
[2017-12-28] MEDS: ATORVASTATIN CALCIUM 20MG TABLET PO SCH (21:25)
[2017-12-28] MEDS: INSULIN GLARGINE UD 100 UNITS/ML SYR SUBCUT SCH (21:31)
[2017-12-28] MEDS ORDERED: ONDANSETRON HCL 4MG/2ML VIAL IV PRN (22:15)
[2017-12-28] MEDS: PANTOPRAZOLE SODIUM 40 MG/VIAL IV SCH (22:28)
[2017-12-29] VITALS (11 sets, daily range): BP systolic 93–142; BP diastolic 46–76
[2017-12-29] MEDS: MORPHINE SULFATE 4 MG/ML CPJ (NOT FOR IM USE) IV PRN (04:07)
[2017-12-29] MEDS: HYDRALAZINE HCL 50MG TABLET PO SCH (05:26)
[2017-12-29 05:37] LABS: BASOPHILS % 1.1 % (0.0-2.0); EOSINOPHILS % 1.9 % (0.0-5.0); HEMATOCRIT. 29.9 % (36.0-48.0); HEMOGLOBIN. 10.2 g/dL (12.0-16.0); LYMPHOCYTES % 28.1 % (20.0-50.0); MEAN CORPUSCULAR HEMOGLOBIN 30.1 pg (28.0-32.0); MEAN CORPUSCULAR VOLUME 88.3 fL (81.0-99.0); MEAN PLATELET VOLUME 9.8 fl (7.4-10.4); NEUTROPHILS % 57.9 % (40.0-76.0); PLATELET 237 x1000/uL (130-400); RED BLOOD CELL COUNT 3.38 mill/uL (4.2-5.4); RED CELL DISTRIBUTION WIDTH 13.7 % (11.6-14.6)
[2017-12-29] MEDS: INSULIN LISPRO 100 UNITS/ML SUBCUT SCH ×4 (08:00→21:00)
[2017-12-29] MEDS: BLOOD SUGAR DIAGNOSTIC STRIP TEST SCH ×4 (08:24→21:00)
[2017-12-29] MEDS: CLOPIDOGREL 75MG TABLET PO SCH (09:11)
[2017-12-29] MEDS: CARVEDILOL 3.125 MG TABLET PO SCH ×2 (09:12→21:22)
[2017-12-29] MEDS: ASPIRIN 81MG EC TABLET PO SCH (09:12)
[2017-12-29] MEDS: PANTOPRAZOLE SODIUM 40 MG/VIAL IV SCH (09:12)
[2017-12-29] MEDS: LEVOTHYROXINE SODIUM 75MCG TABLET PO SCH (09:12)
[2017-12-29] MEDS: FUROSEMIDE 40MG TABLET PO SCH (12:30)
[2017-12-29] MEDS: ISOSORB DINIT/HYDRALAZINE HCL 20/37.5MG TABLET PO SCH ×2 (14:00→22:16)
[2017-12-29] MEDS: ATORVASTATIN CALCIUM 20MG TABLET PO SCH (21:22)
[2017-12-29] MEDS: INSULIN GLARGINE UD 100 UNITS/ML SYR SUBCUT SCH (22:17)
[2017-12-30] VITALS (12 sets, daily range): BP systolic 92–129; BP diastolic 57–77
[2017-12-30] MEDS: MORPHINE SULFATE 4 MG/ML CPJ (NOT FOR IM USE) IV PRN (02:58)
[2017-12-30] MEDS: ISOSORB DINIT/HYDRALAZINE HCL 20/37.5MG TABLET PO SCH ×3 (05:27→22:25)
[2017-12-30] MEDS: LEVOTHYROXINE SODIUM 75MCG TABLET PO SCH (06:25)
[2017-12-30 06:30] LABS: BASOPHILS % 0.9 % (0.0-2.0); EOSINOPHILS % 1.9 % (0.0-5.0); HEMATOCRIT. 29.1 % (36.0-48.0); HEMOGLOBIN. 10.1 g/dL (12.0-16.0); LYMPHOCYTES % 25.1 % (20.0-50.0); MEAN CORPUSCULAR HEMOGLOBIN 30.6 pg (28.0-32.0); MEAN CORPUSCULAR VOLUME 87.8 fL (81.0-99.0); MONOCYTES % 11.4 % (2.0-8.0); NEUTROPHILS % 60.7 % (40.0-76.0); PLATELET 227 x1000/uL (130-400); RED BLOOD CELL COUNT 3.31 mill/uL (4.2-5.4); RED CELL DISTRIBUTION WIDTH 13.4 % (11.6-14.6)
[2017-12-30] MEDS: BLOOD SUGAR DIAGNOSTIC STRIP TEST SCH ×4 (07:30→21:00)
[2017-12-30] MEDS: INSULIN LISPRO 100 UNITS/ML SUBCUT SCH ×4 (08:00→21:33)
[2017-12-30] MEDS: CARVEDILOL 3.125 MG TABLET PO SCH ×2 (08:39→21:23)
[2017-12-30] MEDS: FUROSEMIDE 40MG TABLET PO SCH (08:40)
[2017-12-30] MEDS: CLOPIDOGREL 75MG TABLET PO SCH (08:40)
[2017-12-30] MEDS: PANTOPRAZOLE SODIUM 40 MG/VIAL IV SCH (08:40)
[2017-12-30] MEDS: ASPIRIN 81MG EC TABLET PO SCH (08:40)
[2017-12-30] MEDS: ATORVASTATIN CALCIUM 20MG TABLET PO SCH (21:22)
[2017-12-30] MEDS: INSULIN GLARGINE UD 100 UNITS/ML SYR SUBCUT SCH (21:33)
[2017-12-31] VITALS (18 sets, daily range): BP systolic 55–147; BP diastolic 21–80
[2017-12-31] MEDS: ISOSORB DINIT/HYDRALAZINE HCL 20/37.5MG TABLET PO SCH ×3 (06:00→21:51)
[2017-12-31 06:45] LABS: BASOPHILS % 0.8 % (0.0-2.0); EOSINOPHILS % 1.5 % (0.0-5.0); HEMATOCRIT. 28.8 % (36.0-48.0); HEMOGLOBIN. 9.8 g/dL (12.0-16.0); LYMPHOCYTES % 29.7 % (20.0-50.0); MEAN CORPUSCULAR HEMOGLOBIN 29.9 pg (28.0-32.0); MEAN CORPUSCULAR VOLUME 87.7 fL (81.0-99.0); MEAN PLATELET VOLUME 9.8 fl (7.4-10.4); MONOCYTES % 10.7 % (2.0-8.0); NEUTROPHILS % 57.3 % (40.0-76.0); PLATELET 219 x1000/uL (130-400); RED BLOOD CELL COUNT 3.28 mill/uL (4.2-5.4); RED CELL DISTRIBUTION WIDTH 13.3 % (11.6-14.6)
[2017-12-31] MEDS: SODIUM CHLORIDE 0.45% 1,000 ML IV SCH (07:05)
[2017-12-31] MEDS: LEVOTHYROXINE SODIUM 75MCG TABLET PO SCH (07:07)
[2017-12-31] MEDS: INSULIN LISPRO 100 UNITS/ML SUBCUT SCH ×4 (08:00→21:48)
[2017-12-31] MEDS: BLOOD SUGAR DIAGNOSTIC STRIP TEST SCH ×4 (08:08→20:44)
[2017-12-31] MEDS: FUROSEMIDE 40MG TABLET PO SCH (09:00)
[2017-12-31] MEDS: CARVEDILOL 3.125 MG TABLET PO SCH ×2 (09:00→20:44)
[2017-12-31] MEDS: PANTOPRAZOLE SODIUM 40 MG/VIAL IV SCH (09:38)
[2017-12-31] MEDS: ASPIRIN 81MG EC TABLET PO SCH (11:02)
[2017-12-31] MEDS: CLOPIDOGREL 75MG TABLET PO SCH (11:02)
[2017-12-31] MEDS ORDERED: LIDOCAINE HCL 1% 20ML VIAL (Pyxis) INJ ONE (12:15)
[2017-12-31] MEDS ORDERED: IODIXANOL 320MG/ML 100 ML BOTTLE IV ONE (12:15)
[2017-12-31] MEDS ORDERED: MIDAZOLAM HCL 2 MG/2 ML VIAL ONE (12:20)
[2017-12-31] MEDS ORDERED: FENTANYL CITRATE/PF 50MCG/ML 2ML VIAL ONE (12:21)
[2017-12-31] MEDS ORDERED: IOHEXOL-300 100 ML BOTTLE ONE (12:25)
[2017-12-31] MEDS ORDERED: ASPIRIN 325MG TABLET ONE (13:13)
[2017-12-31] MEDS ORDERED: CLOPIDOGREL 75MG TABLET ONE (13:13)
[2017-12-31] MEDS ORDERED: ATROPINE SULFATE 1MG/10ML SYR IV PRN (13:15)
[2017-12-31] MEDS ORDERED: ONDANSETRON HCL 4MG/2ML VIAL IV PRN (13:15)
[2017-12-31] MEDS ORDERED: ACETAMINOPHEN 325MG TABLET PO PRN (13:15)
[2017-12-31] MEDS ORDERED: HEPARIN SODIUM 1,000 UNIT/1ML VIAL IV ONE (14:15)
[2017-12-31] MEDS ORDERED: NICARDIPINE 100MCG/ML 10ML VIAL (CATH LAB) IV ONE (14:18)
[2017-12-31] MEDS ORDERED: NITROGLYCERIN 50MCG/ML 10ML VIAL (CATH LAB) IV ONE (14:18)
[2017-12-31] MEDS: ATORVASTATIN CALCIUM 20MG TABLET PO SCH (20:44)
[2017-12-31] MEDS: INSULIN GLARGINE UD 100 UNITS/ML SYR SUBCUT SCH (21:49)
[2018-01-01] VITALS (10 sets, daily range): BP systolic 100–138; BP diastolic 55–79
[2018-01-01] MEDS: BLOOD SUGAR DIAGNOSTIC STRIP TEST SCH ×2 (06:13→11:49)
[2018-01-01] MEDS: LEVOTHYROXINE SODIUM 75MCG TABLET PO SCH (06:22)
[2018-01-01] MEDS: ISOSORB DINIT/HYDRALAZINE HCL 20/37.5MG TABLET PO SCH ×2 (06:22→14:00)
[2018-01-01] MEDS: SODIUM CHLORIDE 0.45% 1,000 ML IV SCH (07:00)
[2018-01-01] MEDS: INSULIN LISPRO 100 UNITS/ML SUBCUT SCH ×2 (07:20→11:49)
[2018-01-01 07:58] LABS: BASOPHILS % 0.7 % (0.0-2.0); EOSINOPHILS % 1.6 % (0.0-5.0); HEMATOCRIT. 28.1 % (36.0-48.0); HEMOGLOBIN. 9.6 g/dL (12.0-16.0); LYMPHOCYTES % 25.8 % (20.0-50.0); MEAN CORPUSCULAR VOLUME 88.2 fL (81.0-99.0); MEAN PLATELET VOLUME 9.9 fl (7.4-10.4); MONOCYTES % 10.3 % (2.0-8.0); NEUTROPHILS % 61.6 % (40.0-76.0); PLATELET 222 x1000/uL (130-400); RED BLOOD CELL COUNT 3.18 mill/uL (4.2-5.4); RED CELL DISTRIBUTION WIDTH 13.4 % (11.6-14.6)
[2018-01-01] MEDS: FUROSEMIDE 40MG TABLET PO SCH (08:22)
[2018-01-01] MEDS: CLOPIDOGREL 75MG TABLET PO SCH (08:22)
[2018-01-01] MEDS: PANTOPRAZOLE SODIUM 40 MG/VIAL IV SCH (08:22)
[2018-01-01] MEDS: CARVEDILOL 3.125 MG TABLET PO SCH (08:24)
[2018-01-01] MEDS ORDERED: CLOPIDOGREL 75MG TABLET PO SCH (09:00)
[2018-01-01] MEDS ORDERED: ASPIRIN 325MG TABLET PO SCH (09:00)
[2018-01-01] MEDS ORDERED: ASPI-1159 PO (15:39)
[2018-01-01] MEDS ORDERED: ASPIRIN 81MG TABLET PO SCH (15:45)
[2018-01-02] MEDS ORDERED: FAMOTIDINE 20MG TABLET PO SCH (09:00)
== END 2018-01-01 17:25 | disposition home or self-care (01) | DRG 246 ==
LOC: ER 16:30 → 5EST 18:26 → ENRESERV 19:37 → 5EST 21:33 → 3WST 12-31 13:38
PROVIDERS: ADMIT Hospitalist; ATTEND Hospitalist
PROC: 027035Z Dilation of Coronary Artery, One Artery with Two Drug-eluting Intraluminal Devices, Percutaneous Approach (ICD-10-PCS; principal; 2017-12-31)
PROC: 4A023N7 Measurement of Cardiac Sampling and Pressure, Left Heart, Percutaneous Approach (ICD-10-PCS; 2017-12-31)
PROC: B2111ZZ Fluoroscopy of Multiple Coronary Arteries using Low Osmolar Contrast (ICD-10-PCS; 2017-12-31)
DX: I13.0 Hypertensive heart and chronic kidney disease with heart failure and stage 1 through stage 4 chronic kidney disease, or unspecified chronic kidney disease (principal); I50.43 Acute on chronic combined systolic (congestive) and diastolic (congestive) heart failure; J96.01 Acute respiratory failure with hypoxia; E44.0 Moderate protein-calorie malnutrition; N17.9 Acute kidney failure, unspecified; N18.3 Chronic kidney disease, stage 3 (moderate); E11.65 Type 2 diabetes mellitus with hyperglycemia; I25.5 Ischemic cardiomyopathy; I27.20 Pulmonary hypertension, unspecified; D64.9 Anemia, unspecified; E03.9 Hypothyroidism, unspecified; E11.22 Type 2 diabetes mellitus with diabetic chronic kidney disease; E66.9 Obesity, unspecified; E78.5 Hyperlipidemia, unspecified; I95.9 Hypotension, unspecified; E87.6 Hypokalemia; I34.0 Nonrheumatic mitral (valve) insufficiency; I42.0 Dilated cardiomyopathy; I49.3 Ventricular premature depolarization; Z79.4 Long term (current) use of insulin; Z79.899 Other long term (current) drug therapy; Z82.49 Family history of ischemic heart disease and other diseases of the circulatory system; Z85.42 Personal history of malignant neoplasm of other parts of uterus; Z88.2 Allergy status to sulfonamides; Z90.710 Acquired absence of both cervix and uterus; I25.2 Old myocardial infarction; Z91.19 Patient's noncompliance with other medical treatment and regimen; Z88.0 Allergy status to penicillin; Z95.5 Presence of coronary angioplasty implant and graft; Z79.82 Long term (current) use of aspirin; Z68.27 Body mass index [BMI] 27.0-27.9, adult; Z71.3 Dietary counseling and surveillance; E87.70 Fluid overload, unspecified; I25.10 Atherosclerotic heart disease of native coronary artery without angina pectoris
CPT/HCPCS: 36415; 71045; 80048; 80053; 81003; 82962; 83880; 84439; 84443; 84481; 84484; 85025; 85347; 87086; 92928; 93005; 93454; 93970; 97162; 97164; 97166; 97530; 99285; C1725; C1760; C1769; C1874; C1887; C1893; C9113; J1250; J1644; J1815; J1940; J2250; J2270; J2405; J3010; J3490; J7040; Q9967

== ENCOUNTER 2018-07-17 11:08 | Inpatient (IN) | payer OTHER ==
[~2018-07-17] VITALS: Ht 152.4 cm; Wt 70.8 kg
[~2018-07-17 11:08] MED LIST changes: +ASPI-1159 PO; -ASPI-867 MT; -CARV3.1242 MT
[2018-07-17] MEDS ORDERED: MORPHINE SULFATE 4 MG/ML CPJ (NOT FOR IM USE) IV STA (12:03)
[2018-07-17] MEDS ORDERED: ONDANSETRON HCL 4MG/2ML INJ IV STA (12:03)
[2018-07-17 12:10] LABS: BASOPHILS % 0.4 % (0.0-2.0); HEMOGLOBIN. 12.5 g/dL (12.0-16.0); LYMPHOCYTES % 8.6 % (20.0-50.0); MEAN CORPUSCULAR HEMOGLOBIN 30.9 pg (28.0-32.0); MEAN CORPUSCULAR VOLUME 91.9 fL (81.0-99.0); MEAN PLATELET VOLUME 8.3 fl (7.4-10.4); MONOCYTES % 5.8 % (2.0-8.0); NEUTROPHILS % 84.2 % (40.0-76.0); PLATELET 324 x1000/uL (130-400); RED BLOOD CELL COUNT 4.03 mill/uL (4.2-5.4)
[2018-07-17] MEDS ORDERED: ASPIRIN 81MG TABLET PO ONE (12:15)
[2018-07-17] MEDS ORDERED: NITROGLYCERIN OINT 1GM/INCH UDPKT TD ONE (12:15)
[2018-07-17 12:16] LABS: CHLORIDE 95 mEq/L (98-107)
[2018-07-17 13:00] LABS: PARTIAL THROMBOPLASTIN TIME 24.9 sec (23.4-31.0); PROTHROMBIN TIME 10.5 sec (9.1-11.1)
[2018-07-17] MEDS ORDERED: FUROSEMIDE 20MG/2ML VIAL IVP ONE (13:00)
[2018-07-17] MEDS ORDERED: DIPHENHYDRAMINE 50MG/ML VIAL IV PRN (15:45)
[2018-07-17] MEDS ORDERED: NITROGLYCERIN 0.4MG TABLET SL SL PRN (15:45)
[2018-07-17] MEDS ORDERED: DEXTROSE 50% WATER 50ML SYRINGE IV PRN (15:45)
[2018-07-17] MEDS ORDERED: MORPHINE SULFATE 4 MG/ML CPJ (NOT FOR IM USE) IV PRN (15:45)
[2018-07-17] MEDS ORDERED: ZOLPIDEM TARTRATE 5MG TABLET PO PRN (15:45)
[2018-07-17] MEDS ORDERED: ACETAMINOPHEN 325MG TABLET PO PRN (15:45)
[2018-07-17] MEDS ORDERED: MAGNESIUM/ALUMINUM HYDROXIDE/SIMETHICONE 30ML UDC PO PRN (15:45)
[2018-07-17] MEDS ORDERED: CLONIDINE 0.1MG TABLET PO PRN (15:45)
[2018-07-17] MEDS ORDERED: DOCUSATE SODIUM 100MG CAPSULE PO PRN (15:45)
[2018-07-17] MEDS ORDERED: GUAIFENESIN 200MG/10ML SUGAR FREE UDC PO PRN (15:45)
[2018-07-17] MEDS ORDERED: IPRATROPIUM/ALBUTEROL 0.5-3(2.5)MG/3ML NEB INH PRN (15:45)
[2018-07-17 16:00] VITALS: BP 125/62
[2018-07-17 17:01] VITALS: BP 125/67
[2018-07-17] MEDS: BLOOD SUGAR DIAGNOSTIC STRIP TEST SCH ×2 (17:10→20:52)
[2018-07-17] MEDS ORDERED: GABA-290 PO (17:22)
[2018-07-17] MEDS ORDERED: LEVO175T7 PO (17:22)
[2018-07-17] MEDS ORDERED: ATOR40TA70 PO (17:22)
[2018-07-17] MEDS ORDERED: ALBU6.7H9 IH (17:22)
[2018-07-17] MEDS ORDERED: BUME2TAB3 PO (17:22)
[2018-07-17] MEDS ORDERED: PANT40TA4 PO (17:22)
[2018-07-17] MEDS ORDERED: CARV12.545 PO (17:22)
[2018-07-17] MEDS: ENOXAPARIN 30MG/0.3ML SYR SUBCUT SCH (18:16)
[2018-07-17] MEDS: TRAMADOL 50MG TABLET PO PRN (18:16)
[2018-07-17] MEDS: INSULIN LISPRO 100 UNITS/ML SUBCUT SCH ×2 (18:26→21:00)
[2018-07-17 20:00] VITALS: BP 121/65
[2018-07-17] MEDS: METOPROLOL TARTRATE 25MG TABLET PO SCH (20:52)
[2018-07-17] MEDS: ISOSORBIDE DINITRATE 30MG TABLET PO SCH (20:52)
[2018-07-17] MEDS: ATORVASTATIN CALCIUM 20MG TABLET PO SCH (20:52)
[2018-07-17] MEDS: FUROSEMIDE 20MG/2ML VIAL IVP SCH (20:52)
[2018-07-17] MEDS: INSULIN GLARGINE UD 100 UNITS/ML SYR SUBCUT SCH (21:40)
[2018-07-18] VITALS: BP 112/61
[2018-07-18 00:13] LABS: CREATINE KINASE MB FRACTION 1.9 ng/mL (0.5-3.6)
[2018-07-18] MEDS: TRAMADOL 50MG TABLET PO PRN (03:16)
[2018-07-18 04:00] VITALS: BP 131/68
[2018-07-18 06:37] LABS: BASOPHILS % 0.6 % (0.0-2.0); EOSINOPHILS % 1.3 % (0.0-5.0); HEMOGLOBIN. 10.4 g/dL (12.0-16.0); LYMPHOCYTES % 15.3 % (20.0-50.0); MEAN CORPUSCULAR HEMOGLOBIN 30.7 pg (28.0-32.0); MEAN CORPUSCULAR VOLUME 91.2 fL (81.0-99.0); MEAN PLATELET VOLUME 8.7 fl (7.4-10.4); MONOCYTES % 9.2 % (2.0-8.0); NEUTROPHILS % 73.6 % (40.0-76.0); PLATELET 289 x1000/uL (130-400); RED BLOOD CELL COUNT 3.39 mill/uL (4.2-5.4); RED CELL DISTRIBUTION WIDTH 14.1 % (11.6-14.6)
[2018-07-18] MEDS: BLOOD SUGAR DIAGNOSTIC STRIP TEST SCH ×4 (06:39→20:34)
[2018-07-18] MEDS: INSULIN LISPRO 100 UNITS/ML SUBCUT SCH ×4 (06:42→20:34)
[2018-07-18] MEDS: LEVOTHYROXINE SODIUM 150MCG TABLET PO SCH (06:49)
[2018-07-18 07:08] LABS: CREATINE KINASE MB FRACTION 1.7 ng/mL (0.5-3.6)
[2018-07-18 08:28] VITALS: BP 127/68
[2018-07-18] MEDS ORDERED: ASPIRIN 81MG EC TABLET PO SCH (09:00)
[2018-07-18] MEDS: CLOPIDOGREL 75MG TABLET PO SCH (09:49)
[2018-07-18] MEDS: FUROSEMIDE 20MG/2ML VIAL IVP SCH ×2 (09:50→21:01)
[2018-07-18] MEDS: ISOSORBIDE DINITRATE 30MG TABLET PO SCH ×2 (09:50→21:01)
[2018-07-18] MEDS: METOPROLOL TARTRATE 25MG TABLET PO SCH ×2 (09:50→21:01)
[2018-07-18] MEDS: ASPIRIN 325MG EC TABLET PO SCH (09:51)
[2018-07-18 12:00] VITALS: BP 125/64
[2018-07-18] MEDS: MORPHINE SULFATE 4 MG/ML CPJ (NOT FOR IM USE) IV PRN ×2 (12:02→21:34)
[2018-07-18 16:00] VITALS: BP 113/60
[2018-07-18] MEDS: ENOXAPARIN 30MG/0.3ML SYR SUBCUT SCH (17:32)
[2018-07-18 20:00] VITALS: BP 139/75
[2018-07-18] MEDS: ATORVASTATIN CALCIUM 20MG TABLET PO SCH (21:01)
[2018-07-18] MEDS: INSULIN GLARGINE UD 100 UNITS/ML SYR SUBCUT SCH (21:08)
[2018-07-19] VITALS (8 sets, daily range): BP systolic 98–150; BP diastolic 41–70
[2018-07-19] MEDS: TRAMADOL 50MG TABLET PO PRN ×2 (01:11→15:36)
[2018-07-19] MEDS: BLOOD SUGAR DIAGNOSTIC STRIP TEST SCH ×4 (06:30→21:21)
[2018-07-19] MEDS: INSULIN LISPRO 100 UNITS/ML SUBCUT SCH ×4 (06:30→21:00)
[2018-07-19] MEDS: LEVOTHYROXINE SODIUM 150MCG TABLET PO SCH ×2 (06:39→06:49)
[2018-07-19 07:05] LABS: BASOPHILS % 0.8 % (0.0-2.0); EOSINOPHILS % 1.5 % (0.0-5.0); HEMATOCRIT. 28.9 % (36.0-48.0); HEMOGLOBIN. 9.9 g/dL (12.0-16.0); LYMPHOCYTES % 14.3 % (20.0-50.0); MEAN CORPUSCULAR HEMOGLOBIN 30.9 pg (28.0-32.0); MEAN CORPUSCULAR VOLUME 90.6 fL (81.0-99.0); MEAN PLATELET VOLUME 8.5 fl (7.4-10.4); NEUTROPHILS % 72.4 % (40.0-76.0); PLATELET 272 x1000/uL (130-400); RED BLOOD CELL COUNT 3.19 mill/uL (4.2-5.4); RED CELL DISTRIBUTION WIDTH 13.8 % (11.6-14.6)
[2018-07-19] MEDS: ISOSORBIDE DINITRATE 30MG TABLET PO SCH ×2 (09:06→21:11)
[2018-07-19] MEDS: CLOPIDOGREL 75MG TABLET PO SCH (09:06)
[2018-07-19] MEDS: ASPIRIN 325MG EC TABLET PO SCH (09:06)
[2018-07-19] MEDS: FUROSEMIDE 20MG/2ML VIAL IVP SCH (09:07)
[2018-07-19] MEDS: METOPROLOL TARTRATE 25MG TABLET PO SCH ×2 (09:07→21:12)
[2018-07-19] MEDS: MORPHINE SULFATE 4 MG/ML CPJ (NOT FOR IM USE) IV PRN (21:12)
[2018-07-19] MEDS: INSULIN GLARGINE UD 100 UNITS/ML SYR SUBCUT SCH (21:20)
[2018-07-19] MEDS: ATORVASTATIN CALCIUM 20MG TABLET PO SCH (21:24)
[2018-07-20 04:00] VITALS: BP 114/54
[2018-07-20] MEDS: INSULIN LISPRO 100 UNITS/ML SUBCUT SCH ×4 (06:29→21:56)
[2018-07-20] MEDS: BLOOD SUGAR DIAGNOSTIC STRIP TEST SCH ×4 (06:29→21:58)
[2018-07-20] MEDS: LEVOTHYROXINE SODIUM 150MCG TABLET PO SCH (06:30)
[2018-07-20 07:03] LABS: BASOPHILS % 0.8 % (0.0-2.0); EOSINOPHILS % 2.2 % (0.0-5.0); HEMOGLOBIN. 9.8 g/dL (12.0-16.0); LYMPHOCYTES % 26.5 % (20.0-50.0); MEAN CORPUSCULAR HEMOGLOBIN 30.7 pg (28.0-32.0); MEAN CORPUSCULAR VOLUME 90.9 fL (81.0-99.0); MEAN PLATELET VOLUME 8.9 fl (7.4-10.4); MONOCYTES % 12.4 % (2.0-8.0); NEUTROPHILS % 58.1 % (40.0-76.0); PLATELET 261 x1000/uL (130-400); RED BLOOD CELL COUNT 3.19 mill/uL (4.2-5.4); RED CELL DISTRIBUTION WIDTH 14.2 % (11.6-14.6)
[2018-07-20 08:10] VITALS: BP 148/71
[2018-07-20] MEDS ORDERED: REGADENOSON 0.4 MG/5 ML IV NR (08:30)
[2018-07-20] MEDS: ISOSORBIDE DINITRATE 30MG TABLET PO SCH ×2 (08:46→21:00)
[2018-07-20] MEDS: METOPROLOL TARTRATE 25MG TABLET PO SCH ×2 (08:46→21:41)
[2018-07-20] MEDS: CLOPIDOGREL 75MG TABLET PO SCH (08:46)
[2018-07-20] MEDS: ASPIRIN 81MG EC TABLET PO SCH (08:46)
[2018-07-20] MEDS ORDERED: REGADENOSON 0.4 MG/5 ML IV ONE (09:57)
[2018-07-20] MEDS: MORPHINE SULFATE 4 MG/ML CPJ (NOT FOR IM USE) IV PRN (11:15)
[2018-07-20 12:00] VITALS: BP 133/61
[2018-07-20 16:00] VITALS: BP 140/74
[2018-07-20 20:00] VITALS: BP 116/56
[2018-07-20] MEDS: ATORVASTATIN CALCIUM 20MG TABLET PO SCH (21:40)
[2018-07-20] MEDS: ONDANSETRON HCL 4MG/2ML INJ IV PRN (21:40)
[2018-07-20] MEDS: INSULIN GLARGINE UD 100 UNITS/ML SYR SUBCUT SCH (21:57)
[2018-07-21] VITALS: BP 108/52
[2018-07-21 04:00] VITALS: BP 110/51
[2018-07-21 07:19] LABS: BASOPHILS % 0.6 % (0.0-2.0); EOSINOPHILS % 1.7 % (0.0-5.0); HEMATOCRIT. 31.1 % (36.0-48.0); HEMOGLOBIN. 10.7 g/dL (12.0-16.0); LYMPHOCYTES % 26.1 % (20.0-50.0); MEAN CORPUSCULAR VOLUME 90.5 fL (81.0-99.0); MEAN PLATELET VOLUME 8.8 fl (7.4-10.4); MONOCYTES % 13.8 % (2.0-8.0); NEUTROPHILS % 57.8 % (40.0-76.0); PLATELET 270 x1000/uL (130-400); RED BLOOD CELL COUNT 3.44 mill/uL (4.2-5.4); RED CELL DISTRIBUTION WIDTH 13.6 % (11.6-14.6)
[2018-07-21] MEDS: BLOOD SUGAR DIAGNOSTIC STRIP TEST SCH ×4 (07:38→20:29)
[2018-07-21] MEDS: INSULIN LISPRO 100 UNITS/ML SUBCUT SCH ×4 (07:38→20:41)
[2018-07-21 08:00] VITALS: BP 138/69
[2018-07-21] MEDS: LEVOTHYROXINE SODIUM 150MCG TABLET PO SCH (08:10)
[2018-07-21] MEDS: ISOSORBIDE DINITRATE 30MG TABLET PO SCH ×2 (08:21→20:30)
[2018-07-21] MEDS: ASPIRIN 81MG EC TABLET PO SCH (08:21)
[2018-07-21] MEDS: METOPROLOL TARTRATE 25MG TABLET PO SCH ×2 (08:21→20:30)
[2018-07-21] MEDS: CLOPIDOGREL 75MG TABLET PO SCH (08:21)
[2018-07-21] MEDS: TRAMADOL 50MG TABLET PO PRN ×2 (11:41→20:31)
[2018-07-21 12:00] VITALS: BP 138/70
[2018-07-21 16:00] VITALS: BP 144/74
[2018-07-21 20:00] VITALS: BP 155/79
[2018-07-21] MEDS: ATORVASTATIN CALCIUM 20MG TABLET PO SCH (20:31)
[2018-07-21] MEDS: INSULIN GLARGINE UD 100 UNITS/ML SYR SUBCUT SCH (21:24)
[2018-07-22] VITALS: BP 152/84
[2018-07-22] MEDS: MORPHINE SULFATE 4 MG/ML CPJ (NOT FOR IM USE) IV PRN ×2 (00:12→21:39)
[2018-07-22 04:00] VITALS: BP 149/82
[2018-07-22] MEDS: INSULIN LISPRO 100 UNITS/ML SUBCUT SCH ×4 (06:10→21:00)
[2018-07-22] MEDS: LEVOTHYROXINE SODIUM 150MCG TABLET PO SCH (06:10)
[2018-07-22] MEDS: BLOOD SUGAR DIAGNOSTIC STRIP TEST SCH ×4 (06:10→21:46)
[2018-07-22 08:00] VITALS: BP 161/83
[2018-07-22] MEDS: ASPIRIN 81MG EC TABLET PO SCH (08:41)
[2018-07-22] MEDS: ISOSORBIDE DINITRATE 30MG TABLET PO SCH ×2 (08:42→21:38)
[2018-07-22] MEDS: METOPROLOL TARTRATE 25MG TABLET PO SCH ×2 (08:42→21:38)
[2018-07-22] MEDS: CLOPIDOGREL 75MG TABLET PO SCH (08:42)
[2018-07-22] MEDS: ONDANSETRON HCL 4MG/2ML INJ IV PRN (17:00)
[2018-07-22 19:35] LABS: T4 FREE 1.06 ng/dL (0.76-1.46)
[2018-07-22 19:57] LABS: VITAMIN B12 SERUM 734 pg/mL (211-911)
[2018-07-22 20:00] VITALS: BP 164/85
[2018-07-22 20:09] LABS: FOLIC ACID (FOLATE) SERUM > 20.00 ng/mL (>5.38)
[2018-07-22] MEDS: ATORVASTATIN CALCIUM 20MG TABLET PO SCH (21:38)
[2018-07-22] MEDS: INSULIN GLARGINE UD 100 UNITS/ML SYR SUBCUT SCH (21:45)
[2018-07-23] VITALS: BP 146/68
[2018-07-23 04:00] VITALS: BP 149/71
[2018-07-23] MEDS: LEVOTHYROXINE SODIUM 150MCG TABLET PO SCH (06:22)
[2018-07-23] MEDS: BLOOD SUGAR DIAGNOSTIC STRIP TEST SCH (06:22)
[2018-07-23] MEDS: INSULIN LISPRO 100 UNITS/ML SUBCUT SCH (06:22)
[2018-07-23 07:30] VITALS: BP 152/83
[2018-07-23] MEDS: ISOSORBIDE DINITRATE 30MG TABLET PO SCH (09:00)
[2018-07-23] MEDS: ASPIRIN 81MG EC TABLET PO SCH (09:00)
[2018-07-23] MEDS: METOPROLOL TARTRATE 25MG TABLET PO SCH (09:00)
[2018-07-23] MEDS: CLOPIDOGREL 75MG TABLET PO SCH (09:00)
== END 2018-07-23 10:00 | disposition left against medical advice (07) | DRG 291 ==
LOC: ER 11:20 → 8WST 13:27 → EDBEDREQ 13:31 → ENRESERV 14:25 → SUPCPDRO 15:33 → 8WST 07-23 07:41
PROVIDERS: ADMIT Internal Medicine; ATTEND Internal Medicine
DX: I13.0 Hypertensive heart and chronic kidney disease with heart failure and stage 1 through stage 4 chronic kidney disease, or unspecified chronic kidney disease (principal); N17.0 Acute kidney failure with tubular necrosis; I50.43 Acute on chronic combined systolic (congestive) and diastolic (congestive) heart failure; E44.0 Moderate protein-calorie malnutrition; K59.2 Neurogenic bowel, not elsewhere classified; I24.9 Acute ischemic heart disease, unspecified; I42.9 Cardiomyopathy, unspecified; R07.89 Other chest pain; E11.22 Type 2 diabetes mellitus with diabetic chronic kidney disease; N18.9 Chronic kidney disease, unspecified; E03.9 Hypothyroidism, unspecified; E11.65 Type 2 diabetes mellitus with hyperglycemia; E11.42 Type 2 diabetes mellitus with diabetic polyneuropathy; E11.649 Type 2 diabetes mellitus with hypoglycemia without coma; E78.00 Pure hypercholesterolemia, unspecified; E78.5 Hyperlipidemia, unspecified; G89.4 Chronic pain syndrome; I25.10 Atherosclerotic heart disease of native coronary artery without angina pectoris; I25.5 Ischemic cardiomyopathy; K59.00 Constipation, unspecified; M47.814 Spondylosis without myelopathy or radiculopathy, thoracic region; M51.26 Other intervertebral disc displacement, lumbar region; M48.02 Spinal stenosis, cervical region; M48.061 Spinal stenosis, lumbar region without neurogenic claudication; N31.9 Neuromuscular dysfunction of bladder, unspecified; Z79.02 Long term (current) use of antithrombotics/antiplatelets; Z79.4 Long term (current) use of insulin; Z79.82 Long term (current) use of aspirin; Z82.49 Family history of ischemic heart disease and other diseases of the circulatory system; Z95.5 Presence of coronary angioplasty implant and graft; Z83.3 Family history of diabetes mellitus; Z88.2 Allergy status to sulfonamides; Z88.0 Allergy status to penicillin; Z68.30 Body mass index [BMI] 30.0-30.9, adult
CPT/HCPCS: 36415; 70551; 71045; 72128; 72141; 72148; 78452; 78582; 80048; 80061; 82550; 82553; 82607; 82746; 82962; 83036; 83735; 83880; 84439; 84443; 84481; 84484; 85379; 93005; 93017; 93306; 93970; 96374; 97110; 97162; 97166; 97530; 99285; A6261; A9500; A9558; J1650; J1815; J1940; J2270; J2405; J2785; A4315

== ENCOUNTER 2018-12-15 10:41 | Inpatient (IN) | payer OTHER ==
[~2018-12-15] VITALS: Ht 152.4 cm; Wt 84.4 kg
[~2018-12-15 10:41] MED LIST changes: +ALBU6.7H9 IH; -ASPI-1159 PO; +ASPI-1393 PO; -ATOR20TA65 MT; +ATOR40TA70 PO; +BUME2TAB34 PO; +CARV12.545 PO; -CLOP75TA33 PO; -ERGO500013 PO; +GABA-290 PO; -GABA-531 PO; -INSU100I13 SQ; -ISOS40TA17 PO; -LEVO150T8 MT; +LEVO175T7 PO; -MULT-1131 PO; +PANT40TA4 PO; -SACU1TAB PO
[2018-12-15] MEDS ORDERED: SODIUM CHLORIDE 0.9% 1,000 ML IV ONE (11:09)
[2018-12-15] MEDS ORDERED: METRONIDAZOLE 500 MG PREMIX 100 ML IV ONE (11:15)
[2018-12-15] MEDS ORDERED: CEFTRIAXONE 1 G PREMIX 50 ML IV ONE (11:15)
[2018-12-15 11:38] LABS: BASOPHILS % 1.2 % (0.0-2.0); EOSINOPHILS % 0.7 % (0.0-5.0); HEMATOCRIT. 28.8 % (36.0-48.0); HEMOGLOBIN. 9.8 g/dL (12.0-16.0); LYMPHOCYTES % 10.6 % (20.0-50.0); MEAN CORPUSCULAR HEMOGLOBIN 31.7 pg (28.0-32.0); MEAN CORPUSCULAR VOLUME 92.6 fL (81.0-99.0); MEAN PLATELET VOLUME 8.1 fl (7.4-10.4); MONOCYTES % 4.4 % (2.0-8.0); NEUTROPHILS % 83.1 % (40.0-76.0); PLATELET 296 x1000/uL (130-400); RED BLOOD CELL COUNT 3.11 mill/uL (4.2-5.4); RED CELL DISTRIBUTION WIDTH 14.3 % (11.6-14.6)
[2018-12-15 11:41] LABS: CHLORIDE 105 mEq/L (98-107)
[2018-12-15 11:42] LABS: INR 1.1; PROTHROMBIN TIME 11.1 sec (9.6-11.0)
[2018-12-15] MEDS ORDERED: POTASSIUM CHLORIDE 20MEQ TABLET SR PO NR (13:00)
[2018-12-15] MEDS ORDERED: IOHEXOL-300 100 ML BOTTLE ONE (13:10)
[2018-12-15 13:50] LABS: CLARITY URINE TURBID (CLEAR); COLOR URINE YELLOW (YELLOW); KETONES URINE NEGATIVE (NEGATIVE); LEUKOCYTE ESTERASE URINE 3+ (NEGATIVE); NITRITE URINE POSITIVE (NEGATIVE); OCCULT BLOOD URINE 1+ (NEGATIVE); PH URINE 7.5 (4.5-8.0); PROTEIN URINE 3+ (NEGATIVE); SPECIFIC GRAVITY URINE 1.011 (1.005-1.030); UROBILINOGEN URINE 0.2 E.U./dL (0.2-1.0)
[2018-12-15] MEDS ORDERED: DOXYCYCLINE HYCLATE 100 MG/VIAL IV ONE (14:00)
[2018-12-15] MEDS ORDERED: ONDANSETRON HCL 4MG/2ML INJ IV ONE (14:00)
[2018-12-15] MEDS ORDERED: DOXYCYCLINE 100MG in DEXTROSE 5% WATER 100ML IV NR (14:00)
[2018-12-15] MEDS ORDERED: FUROSEMIDE 40MG/4ML VIAL IVP ONE (14:15)
[2018-12-15] MEDS ORDERED: CEFTRIAXONE 1 G PREMIX 50 ML IV SCH (14:45)
[2018-12-15] MEDS ORDERED: IPRATROPIUM/ALBUTEROL 0.5-3(2.5)MG/3ML NEB INH PRN (14:45)
[2018-12-15] MEDS ORDERED: DIPHENHYDRAMINE 50MG/ML VIAL IV PRN (14:45)
[2018-12-15] MEDS ORDERED: DOCUSATE SODIUM 100MG CAPSULE PO PRN (14:45)
[2018-12-15] MEDS ORDERED: MAGNESIUM/ALUMINUM HYDROXIDE/SIMETHICONE 30ML UDC PO PRN (14:45)
[2018-12-15] MEDS ORDERED: CLONIDINE 0.1MG TABLET PO PRN (14:45)
[2018-12-15] MEDS ORDERED: ENOXAPARIN 40MG/0.4ML SYR SUBCUT SCH (14:45)
[2018-12-15] MEDS ORDERED: GUAIFENESIN 200MG/10ML SUGAR FREE UDC PO PRN (14:45)
[2018-12-15 16:00] VITALS: BP 151/88
[2018-12-15 16:12] LABS: PHOSPHORUS 3.6 mg/dL (2.5-4.9)
[2018-12-15 17:00] VITALS: BP 151/88
[2018-12-15] MEDS: FUROSEMIDE 40MG/4ML VIAL IV SCH (17:00)
[2018-12-15 20:00] VITALS: BP 156/90
[2018-12-15] MEDS ORDERED: DEXTROSE 50% WATER 50ML SYRINGE IV PRN (20:45)
[2018-12-15] MEDS ORDERED: OXYC5CAP12 PO (20:48)
[2018-12-15] MEDS ORDERED: HJ10 SUBCUT (20:48)
[2018-12-15] MEDS ORDERED: ACET-2853 PO (20:48)
[2018-12-15] MEDS ORDERED: HYDR-3282 PO (20:48)
[2018-12-15] MEDS ORDERED: HYDR-4134 PO (20:48)
[2018-12-15] MEDS ORDERED: ASCO500C6 PO (20:48)
[2018-12-15] MEDS ORDERED: CLOP75TA4 PO (20:48)
[2018-12-15] MEDS: BLOOD SUGAR DIAGNOSTIC STRIP TEST SCH (21:00)
[2018-12-15] MEDS: INSULIN LISPRO 100 UNITS/ML SUBCUT SCH (22:34)
[2018-12-15] MEDS: ENOXAPARIN 30MG/0.3ML SYR SUBCUT SCH (22:35)
[2018-12-16] VITALS: BP 148/90
[2018-12-16 00:05] LABS: CREATINE KINASE MB FRACTION 5.3 ng/mL (0.5-3.6)
[2018-12-16] MEDS: HYDROCODONE/ACETAMINOPHEN 5/325MG TABLET PO PRN ×2 (00:42→12:33)
[2018-12-16 04:00] VITALS: BP 148/90
[2018-12-16 05:44] LABS: BASOPHILS % 0.9 % (0.0-2.0); EOSINOPHILS % 0.5 % (0.0-5.0); HEMOGLOBIN. 9.9 g/dL (12.0-16.0); LYMPHOCYTES % 11.9 % (20.0-50.0); MEAN CORPUSCULAR HEMOGLOBIN 31.6 pg (28.0-32.0); MEAN PLATELET VOLUME 8.4 fl (7.4-10.4); MONOCYTES % 6.5 % (2.0-8.0); NEUTROPHILS % 80.2 % (40.0-76.0); PLATELET 275 x1000/uL (130-400); RED BLOOD CELL COUNT 3.12 mill/uL (4.2-5.4); RED CELL DISTRIBUTION WIDTH 14.4 % (11.6-14.6)
[2018-12-16 05:52] LABS: CHLORIDE 107 mEq/L (98-107)
[2018-12-16 06:04] LABS: HDL CHOLESTEROL 59 mg/dL (40-59)
[2018-12-16 06:07] LABS: LDL CHOLESTEROL 65 mg/dL (5-100)
[2018-12-16 06:08] LABS: CREATINE KINASE 151 IU/L (26-192)
[2018-12-16 06:11] LABS: CREATINE KINASE MB FRACTION 4.7 ng/mL (0.5-3.6)
[2018-12-16 08:00] VITALS: BP 145/89
[2018-12-16] MEDS: ENOXAPARIN 30MG/0.3ML SYR SUBCUT SCH (08:09)
[2018-12-16] MEDS: BLOOD SUGAR DIAGNOSTIC STRIP TEST SCH ×4 (08:09→21:14)
[2018-12-16] MEDS: FUROSEMIDE 40MG/4ML VIAL IV SCH ×2 (08:09→17:02)
[2018-12-16] MEDS: INSULIN LISPRO 100 UNITS/ML SUBCUT SCH ×4 (08:11→21:00)
[2018-12-16] MEDS ORDERED: LOSARTAN POTASSIUM 25 MG TABLET PO SCH (11:30)
[2018-12-16 12:00] VITALS: BP 140/70
[2018-12-16] MEDS: CEFTRIAXONE 1 G PREMIX 50 ML IV SCH (12:07)
[2018-12-16] MEDS: ENALAPRIL 5MG TABLET PO SCH ×2 (12:34→21:12)
[2018-12-16 16:03] VITALS: BP 139/86
[2018-12-16] MEDS: ACETAMINOPHEN 325MG TABLET PO PRN (17:12)
[2018-12-16 20:00] VITALS: BP 135/84
[2018-12-16] MEDS: CARVEDILOL 6.25 MG TABLET PO SCH (21:13)
[2018-12-17] VITALS: BP 116/58
[2018-12-17 04:00] VITALS: BP 153/88
[2018-12-17 06:49] LABS: BASOPHILS % 1.5 % (0.0-2.0); EOSINOPHILS % 4.5 % (0.0-5.0); HEMATOCRIT. 26.1 % (36.0-48.0); HEMOGLOBIN. 8.9 g/dL (12.0-16.0); LYMPHOCYTES % 20.3 % (20.0-50.0); MEAN CORPUSCULAR VOLUME 93.5 fL (81.0-99.0); MEAN PLATELET VOLUME 8.8 fl (7.4-10.4); MONOCYTES % 7.4 % (2.0-8.0); NEUTROPHILS % 66.3 % (40.0-76.0); PLATELET 257 x1000/uL (130-400); RED CELL DISTRIBUTION WIDTH 14.1 % (11.6-14.6)
[2018-12-17] MEDS: BLOOD SUGAR DIAGNOSTIC STRIP TEST SCH ×4 (07:45→20:43)
[2018-12-17] MEDS: INSULIN LISPRO 100 UNITS/ML SUBCUT SCH ×4 (07:45→20:43)
[2018-12-17 08:23] VITALS: BP 142/84
[2018-12-17] MEDS: ENOXAPARIN 40MG/0.4ML SYR SUBCUT SCH (08:27)
[2018-12-17] MEDS: ENALAPRIL 5MG TABLET PO SCH (08:27)
[2018-12-17] MEDS: CARVEDILOL 6.25 MG TABLET PO SCH (08:27)
[2018-12-17] MEDS: FUROSEMIDE 40MG/4ML VIAL IV SCH (08:27)
[2018-12-17 09:47] LABS: T4 FREE 0.8 ng/dL (0.76-1.46)
[2018-12-17 10:59] LABS: CREATINE KINASE 107 IU/L (26-192)
[2018-12-17 11:49] VITALS: BP 122/77
[2018-12-17] MEDS: CEFTRIAXONE 1 G PREMIX 50 ML IV SCH (12:03)
[2018-12-17] MEDS: ISOSORB DINIT/HYDRALAZINE HCL 20/37.5MG TABLET PO SCH ×2 (12:03→16:18)
[2018-12-17] MEDS: ONDANSETRON HCL 4MG/2ML INJ IV PRN ×2 (13:02→18:49)
[2018-12-17] MEDS: HYDRALAZINE HCL 25MG TABLET PO SCH ×2 (14:48→18:44)
[2018-12-17] MEDS: GABAPENTIN 300MG CAPSULE PO SCH ×2 (14:48→21:05)
[2018-12-17] MEDS: CLOPIDOGREL 75MG TABLET PO SCH (14:48)
[2018-12-17] MEDS: ASPIRIN 81MG TABLET PO SCH (14:49)
[2018-12-17] MEDS: CARVEDILOL 12.5MG TABLET PO SCH ×2 (14:49→20:42)
[2018-12-17 16:06] VITALS: BP 119/64
[2018-12-17] MEDS ORDERED: CARVEDILOL 12.5MG TABLET PO SCH (21:00)
[2018-12-17] MEDS: ATORVASTATIN CALCIUM 40MG TABLET PO SCH (21:04)
[2018-12-17] MEDS: PANTOPRAZOLE 40MG DR TABLET PO SCH (21:05)
[2018-12-18 00:44] VITALS: BP 102/55
[2018-12-18 04:00] VITALS: BP 96/51
[2018-12-18] MEDS: HYDRALAZINE HCL 25MG TABLET PO SCH ×2 (05:17)
[2018-12-18] MEDS: LEVOTHYROXINE SODIUM 75MCG TABLET PO SCH (06:20)
[2018-12-18] MEDS: PANTOPRAZOLE 40MG DR TABLET PO SCH ×2 (06:20→20:55)
[2018-12-18] MEDS: LEVOTHYROXINE SODIUM 100MCG TABLET PO SCH (06:20)
[2018-12-18] MEDS: BLOOD SUGAR DIAGNOSTIC STRIP TEST SCH ×4 (06:20→20:58)
[2018-12-18] MEDS ORDERED: LEVOTHYROXINE SODIUM 175MCG TABLET PO SCH (07:20)
[2018-12-18 07:32] LABS: BASOPHILS % 1.6 % (0.0-2.0); EOSINOPHILS % 3.5 % (0.0-5.0); HEMATOCRIT. 22.8 % (36.0-48.0); HEMOGLOBIN. 7.7 g/dL (12.0-16.0); LYMPHOCYTES % 31.5 % (20.0-50.0); MEAN CORPUSCULAR HEMOGLOBIN 31.6 pg (28.0-32.0); MEAN CORPUSCULAR VOLUME 93.6 fL (81.0-99.0); MEAN PLATELET VOLUME 8.8 fl (7.4-10.4); MONOCYTES % 8.8 % (2.0-8.0); NEUTROPHILS % 54.6 % (40.0-76.0); PLATELET 242 x1000/uL (130-400); RED BLOOD CELL COUNT 2.43 mill/uL (4.2-5.4)
[2018-12-18] MEDS: INSULIN LISPRO 100 UNITS/ML SUBCUT SCH ×4 (07:33→20:58)
[2018-12-18 07:45] LABS: PHOSPHORUS 4.6 mg/dL (2.5-4.9)
[2018-12-18] MEDS ORDERED: FUROSEMIDE 40MG/4ML VIAL IV SCH (08:00)
[2018-12-18] MEDS: ASPIRIN 81MG TABLET PO SCH (08:17)
[2018-12-18] MEDS: CLOPIDOGREL 75MG TABLET PO SCH (08:17)
[2018-12-18] MEDS: GABAPENTIN 300MG CAPSULE PO SCH ×2 (08:17→20:55)
[2018-12-18] MEDS: ENOXAPARIN 40MG/0.4ML SYR SUBCUT SCH (08:17)
[2018-12-18] MEDS: CARVEDILOL 12.5MG TABLET PO SCH (08:18)
[2018-12-18] MEDS: ISOSORB DINIT/HYDRALAZINE HCL 20/37.5MG TABLET PO SCH ×3 (08:18→17:00)
[2018-12-18 08:32] VITALS: BP 120/67
[2018-12-18] MEDS: CEFTRIAXONE 1 G PREMIX 50 ML IV SCH (12:08)
[2018-12-18 12:23] VITALS: BP 90/47
[2018-12-18] MEDS ORDERED: MAGNESIUM 2 G PREMIX 50 ML IV SCH (14:00)
[2018-12-18] MEDS: CEFEPIME 1,000 MG in DEXTROSE 5% WATER 50 ML IV SCH (15:25)
[2018-12-18 15:56] VITALS: BP 98/50
[2018-12-18 20:00] VITALS: BP 104/55
[2018-12-18] MEDS: ATORVASTATIN CALCIUM 40MG TABLET PO SCH (20:55)
[2018-12-18] MEDS: CARVEDILOL 6.25 MG TABLET PO SCH (20:58)
[2018-12-19 00:16] VITALS: BP 99/49
[2018-12-19 04:00] VITALS: BP 109/51
[2018-12-19] MEDS: BLOOD SUGAR DIAGNOSTIC STRIP TEST SCH ×4 (06:21→20:27)
[2018-12-19] MEDS: LEVOTHYROXINE SODIUM 100MCG TABLET PO SCH (06:29)
[2018-12-19] MEDS: PANTOPRAZOLE 40MG DR TABLET PO SCH ×2 (06:30→20:25)
[2018-12-19] MEDS: LEVOTHYROXINE SODIUM 75MCG TABLET PO SCH (06:30)
[2018-12-19] MEDS: INSULIN LISPRO 100 UNITS/ML SUBCUT SCH ×4 (07:39→20:33)
[2018-12-19 08:49] VITALS: BP 117/62
[2018-12-19] MEDS ORDERED: FUROSEMIDE 40MG TABLET PO SCH (09:00)
[2018-12-19] MEDS ORDERED: CEFEPIME HCL 1000MG/VIAL INJ IM SCH (09:00)
[2018-12-19 09:16] LABS: BASOPHILS % 1.2 % (0.0-2.0); EOSINOPHILS % 2.1 % (0.0-5.0); HEMATOCRIT. 24.7 % (36.0-48.0); HEMOGLOBIN. 8.5 g/dL (12.0-16.0); LYMPHOCYTES % 15.5 % (20.0-50.0); MEAN CORPUSCULAR HEMOGLOBIN 32.3 pg (28.0-32.0); MEAN CORPUSCULAR VOLUME 94.1 fL (81.0-99.0); MEAN PLATELET VOLUME 8.9 fl (7.4-10.4); MONOCYTES % 8.6 % (2.0-8.0); NEUTROPHILS % 72.6 % (40.0-76.0); PLATELET 247 x1000/uL (130-400); RED BLOOD CELL COUNT 2.63 mill/uL (4.2-5.4); RED CELL DISTRIBUTION WIDTH 13.7 % (11.6-14.6)
[2018-12-19] MEDS: ASPIRIN 81MG TABLET PO SCH (09:20)
[2018-12-19] MEDS: CARVEDILOL 6.25 MG TABLET PO SCH ×2 (09:29→20:25)
[2018-12-19] MEDS: ISOSORB DINIT/HYDRALAZINE HCL 20/37.5MG TABLET PO SCH ×3 (09:29→17:00)
[2018-12-19] MEDS: GABAPENTIN 300MG CAPSULE PO SCH ×2 (09:29→20:24)
[2018-12-19] MEDS: CLOPIDOGREL 75MG TABLET PO SCH (09:29)
[2018-12-19] MEDS: ENOXAPARIN 40MG/0.4ML SYR SUBCUT SCH (09:31)
[2018-12-19] MEDS: CEFEPIME 1,000 MG in DEXTROSE 5% WATER 50 ML IV SCH (09:46)
[2018-12-19 09:51] LABS: PHOSPHORUS 5.2 mg/dL (2.5-4.9)
[2018-12-19 12:30] VITALS: BP 108/59
[2018-12-19 16:02] VITALS: BP 111/62
[2018-12-19 20:21] VITALS: BP 107/53
[2018-12-19] MEDS: ATORVASTATIN CALCIUM 40MG TABLET PO SCH (20:24)
[2018-12-20 00:38] VITALS: BP 115/60
[2018-12-20 01:40] LABS: CLARITY URINE TURBID (CLEAR); COLOR URINE AMBER (YELLOW); KETONES URINE NEGATIVE (NEGATIVE); LEUKOCYTE ESTERASE URINE 3+ (NEGATIVE); NITRITE URINE NEGATIVE (NEGATIVE); OCCULT BLOOD URINE 1+ (NEGATIVE); PH URINE 5.5 (4.5-8.0); PROTEIN URINE 3+ (NEGATIVE); SPECIFIC GRAVITY URINE 1.028 (1.005-1.030); UROBILINOGEN URINE 0.2 E.U./dL (0.2-1.0)
[2018-12-20 04:00] VITALS: BP 107/52
[2018-12-20] MEDS: HYDROCODONE/ACETAMINOPHEN 5/325MG TABLET PO PRN (06:14)
[2018-12-20] MEDS: ONDANSETRON HCL 4MG/2ML INJ IV PRN ×2 (06:21→09:09)
[2018-12-20] MEDS: LEVOTHYROXINE SODIUM 75MCG TABLET PO SCH (06:21)
[2018-12-20] MEDS: LEVOTHYROXINE SODIUM 100MCG TABLET PO SCH (06:22)
[2018-12-20] MEDS: BLOOD SUGAR DIAGNOSTIC STRIP TEST SCH ×4 (06:22→21:45)
[2018-12-20] MEDS: PANTOPRAZOLE 40MG DR TABLET PO SCH (06:22)
[2018-12-20] MEDS: INSULIN LISPRO 100 UNITS/ML SUBCUT SCH ×4 (06:25→21:00)
[2018-12-20 08:35] VITALS: BP 106/54
[2018-12-20] MEDS: CEFEPIME 1,000 MG in DEXTROSE 5% WATER 50 ML IV SCH (08:35)
[2018-12-20] MEDS: GABAPENTIN 300MG CAPSULE PO SCH ×2 (08:36→21:45)
[2018-12-20] MEDS: ASPIRIN 81MG TABLET PO SCH (08:36)
[2018-12-20] MEDS: CLOPIDOGREL 75MG TABLET PO SCH (08:37)
[2018-12-20] MEDS: ENOXAPARIN 40MG/0.4ML SYR SUBCUT SCH (08:38)
[2018-12-20] MEDS: ISOSORB DINIT/HYDRALAZINE HCL 20/37.5MG TABLET PO SCH ×3 (08:38→17:00)
[2018-12-20] MEDS: CARVEDILOL 6.25 MG TABLET PO SCH ×2 (08:38→21:44)
[2018-12-20 09:43] LABS: BASOPHILS % 0.4 % (0.0-2.0); EOSINOPHILS % 3.5 % (0.0-5.0); HEMATOCRIT. 23.9 % (36.0-48.0); HEMOGLOBIN. 8.3 g/dL (12.0-16.0); LYMPHOCYTES % 17.7 % (20.0-50.0); MEAN CORPUSCULAR HEMOGLOBIN 32.4 pg (28.0-32.0); MONOCYTES % 10.3 % (2.0-8.0); NEUTROPHILS % 68.1 % (40.0-76.0); PLATELET 255 x1000/uL (130-400); RED BLOOD CELL COUNT 2.55 mill/uL (4.2-5.4); RED CELL DISTRIBUTION WIDTH 13.9 % (11.6-14.6)
[2018-12-20 10:39] LABS: CHLORIDE 104 mEq/L (98-107)
[2018-12-20 10:50] LABS: PHOSPHORUS 5.3 mg/dL (2.5-4.9)
[2018-12-20 12:45] VITALS: BP 122/71
[2018-12-20] MEDS: FAMOTIDINE 20MG TABLET PO SCH (13:07)
[2018-12-20 16:47] VITALS: BP 102/50
[2018-12-20] MEDS ORDERED: FUROSEMIDE 20MG/2ML VIAL IVP NR (18:30)
[2018-12-20 20:21] VITALS: BP 126/69
[2018-12-20] MEDS: ATORVASTATIN CALCIUM 40MG TABLET PO SCH (21:45)
[2018-12-21] VITALS: BP 112/63
[2018-12-21 04:00] VITALS: BP 118/53
[2018-12-21] MEDS: LEVOTHYROXINE SODIUM 100MCG TABLET PO SCH (06:29)
[2018-12-21] MEDS: LEVOTHYROXINE SODIUM 75MCG TABLET PO SCH (06:29)
[2018-12-21] MEDS: BLOOD SUGAR DIAGNOSTIC STRIP TEST SCH ×4 (06:29→21:26)
[2018-12-21] MEDS: INSULIN LISPRO 100 UNITS/ML SUBCUT SCH ×4 (06:58→21:00)
[2018-12-21 07:37] LABS: BASOPHILS % 1.1 % (0.0-2.0); EOSINOPHILS % 5.5 % (0.0-5.0); HEMATOCRIT. 24.5 % (36.0-48.0); HEMOGLOBIN. 8.5 g/dL (12.0-16.0); LYMPHOCYTES % 24.3 % (20.0-50.0); MEAN CORPUSCULAR HEMOGLOBIN 32.4 pg (28.0-32.0); MEAN CORPUSCULAR VOLUME 93.6 fL (81.0-99.0); MEAN PLATELET VOLUME 8.9 fl (7.4-10.4); MONOCYTES % 10.2 % (2.0-8.0); NEUTROPHILS % 58.9 % (40.0-76.0); PHOSPHORUS 5.7 mg/dL (2.5-4.9); PLATELET 251 x1000/uL (130-400); RED BLOOD CELL COUNT 2.62 mill/uL (4.2-5.4); RED CELL DISTRIBUTION WIDTH 13.8 % (11.6-14.6)
[2018-12-21 08:19] VITALS: BP 106/62
[2018-12-21] MEDS: CARVEDILOL 6.25 MG TABLET PO SCH ×2 (09:00→21:00)
[2018-12-21] MEDS: ISOSORB DINIT/HYDRALAZINE HCL 20/37.5MG TABLET PO SCH ×3 (09:00→17:00)
[2018-12-21] MEDS: GABAPENTIN 300MG CAPSULE PO SCH ×2 (10:44→21:26)
[2018-12-21] MEDS: CLOPIDOGREL 75MG TABLET PO SCH (10:45)
[2018-12-21] MEDS: ASPIRIN 81MG TABLET PO SCH (10:45)
[2018-12-21] MEDS: FAMOTIDINE 20MG TABLET PO SCH (10:46)
[2018-12-21] MEDS: CEFEPIME 1,000 MG in DEXTROSE 5% WATER 50 ML IV SCH (10:52)
[2018-12-21] MEDS: ENOXAPARIN 40MG/0.4ML SYR SUBCUT SCH (11:36)
[2018-12-21] MEDS ORDERED: ALBUMIN HUMAN 25GM/100ML (25%) IV SCH (12:00)
[2018-12-21 12:15] VITALS: BP 120/64
[2018-12-21 15:45] VITALS: BP 118/65
[2018-12-21 20:30] VITALS: BP 117/66
[2018-12-21] MEDS: ACETAMINOPHEN 325MG TABLET PO PRN (21:26)
[2018-12-21] MEDS: ATORVASTATIN CALCIUM 40MG TABLET PO SCH (21:26)
[2018-12-22 00:43] VITALS: BP 145/70
[2018-12-22 04:40] VITALS: BP 121/64
[2018-12-22 06:22] LABS: BASOPHILS % 1.1 % (0.0-2.0); EOSINOPHILS % 5.1 % (0.0-5.0); HEMATOCRIT. 24.9 % (36.0-48.0); HEMOGLOBIN. 8.6 g/dL (12.0-16.0); LYMPHOCYTES % 25.3 % (20.0-50.0); MEAN CORPUSCULAR HEMOGLOBIN 32.4 pg (28.0-32.0); MEAN CORPUSCULAR VOLUME 93.7 fL (81.0-99.0); MEAN PLATELET VOLUME 8.8 fl (7.4-10.4); MONOCYTES % 10.7 % (2.0-8.0); NEUTROPHILS % 57.8 % (40.0-76.0); PLATELET 265 x1000/uL (130-400); RED BLOOD CELL COUNT 2.66 mill/uL (4.2-5.4); RED CELL DISTRIBUTION WIDTH 14.1 % (11.6-14.6)
[2018-12-22] MEDS: LEVOTHYROXINE SODIUM 100MCG TABLET PO SCH (06:48)
[2018-12-22] MEDS: LEVOTHYROXINE SODIUM 75MCG TABLET PO SCH (06:48)
[2018-12-22] MEDS: BLOOD SUGAR DIAGNOSTIC STRIP TEST SCH ×4 (06:48→21:28)
[2018-12-22] MEDS: INSULIN LISPRO 100 UNITS/ML SUBCUT SCH ×4 (07:50→21:00)
[2018-12-22 07:53] VITALS: BP 131/71
[2018-12-22] MEDS: ISOSORB DINIT/HYDRALAZINE HCL 20/37.5MG TABLET PO SCH ×3 (08:49→18:05)
[2018-12-22] MEDS: GABAPENTIN 300MG CAPSULE PO SCH ×2 (08:49→21:28)
[2018-12-22] MEDS: FAMOTIDINE 20MG TABLET PO SCH (08:49)
[2018-12-22] MEDS: CLOPIDOGREL 75MG TABLET PO SCH (08:50)
[2018-12-22] MEDS: ASPIRIN 81MG TABLET PO SCH (08:50)
[2018-12-22] MEDS: CARVEDILOL 6.25 MG TABLET PO SCH ×2 (08:50→21:00)
[2018-12-22] MEDS: ENOXAPARIN 40MG/0.4ML SYR SUBCUT SCH (08:51)
[2018-12-22 09:04] LABS: PHOSPHORUS 5.4 mg/dL (2.5-4.9)
[2018-12-22 11:47] VITALS: BP 93/48
[2018-12-22] MEDS: CEFEPIME 1,000 MG in DEXTROSE 5% WATER 50 ML IV SCH (14:01)
[2018-12-22 15:50] VITALS: BP 138/66
[2018-12-22 20:00] VITALS: BP 101/49
[2018-12-22] MEDS: ATORVASTATIN CALCIUM 40MG TABLET PO SCH (21:28)
[2018-12-22] MEDS: ACETAMINOPHEN 325MG TABLET PO PRN (21:29)
[2018-12-23] VITALS: BP 129/65
[2018-12-23 04:00] VITALS: BP 130/65
[2018-12-23] MEDS: LEVOTHYROXINE SODIUM 100MCG TABLET PO SCH (06:29)
[2018-12-23] MEDS: BLOOD SUGAR DIAGNOSTIC STRIP TEST SCH ×2 (06:29→12:20)
[2018-12-23] MEDS: LEVOTHYROXINE SODIUM 75MCG TABLET PO SCH (06:29)
[2018-12-23] MEDS: INSULIN LISPRO 100 UNITS/ML SUBCUT SCH (07:50)
[2018-12-23 08:00] VITALS: BP 135/73
[2018-12-23 08:00] LABS: BASOPHILS % 1.4 % (0.0-2.0); EOSINOPHILS % 3.5 % (0.0-5.0); HEMOGLOBIN. 8.7 g/dL (12.0-16.0); LYMPHOCYTES % 23.1 % (20.0-50.0); MEAN CORPUSCULAR HEMOGLOBIN 32.2 pg (28.0-32.0); MEAN CORPUSCULAR VOLUME 92.9 fL (81.0-99.0); MEAN PLATELET VOLUME 9.1 fl (7.4-10.4); MONOCYTES % 10.3 % (2.0-8.0); NEUTROPHILS % 61.7 % (40.0-76.0); PLATELET 276 x1000/uL (130-400); RED BLOOD CELL COUNT 2.69 mill/uL (4.2-5.4)
[2018-12-23 08:46] LABS: PHOSPHORUS 4.9 mg/dL (2.5-4.9)
[2018-12-23] MEDS: GABAPENTIN 300MG CAPSULE PO SCH (09:41)
[2018-12-23] MEDS: CLOPIDOGREL 75MG TABLET PO SCH (09:41)
[2018-12-23] MEDS: ISOSORB DINIT/HYDRALAZINE HCL 20/37.5MG TABLET PO SCH (09:42)
[2018-12-23] MEDS: FAMOTIDINE 20MG TABLET PO SCH (09:43)
[2018-12-23] MEDS: ASPIRIN 81MG TABLET PO SCH (09:43)
[2018-12-23] MEDS: CARVEDILOL 6.25 MG TABLET PO SCH (09:43)
[2018-12-23] MEDS: CEFEPIME 1,000 MG in DEXTROSE 5% WATER 50 ML IV SCH (09:44)
[2018-12-23] MEDS: ENOXAPARIN 40MG/0.4ML SYR SUBCUT SCH (09:44)
[2018-12-23 12:00] VITALS: BP 86/49
[2018-12-23] MEDS ORDERED: COR6 PO (12:23)
[2018-12-23] MEDS ORDERED: LEVO500T89 MT (12:23)
[2018-12-23] MEDS ORDERED: DEXTL PO (12:23)
[2018-12-23] MEDS ORDERED: FAMO20TA8 PO (12:23)
[2018-12-23 15:21] VITALS: BP 115/65
== END 2018-12-23 17:45 | disposition home or self-care (01) | DRG 853 ==
LOC: ER 10:41 → 6WST 13:55 → EDBEDREQ 14:01 → EDBEDREQTM 14:01 → ENRESERV 14:12
PROVIDERS: ADMIT Internal Medicine; ATTEND Internal Medicine
PROC: 0JB70ZZ Excision of Back Subcutaneous Tissue and Fascia, Open Approach (ICD-10-PCS; principal; 2018-12-16)
DX: A41.50 Gram-negative sepsis, unspecified (principal); I50.23 Acute on chronic systolic (congestive) heart failure; J96.01 Acute respiratory failure with hypoxia; L89.104 Pressure ulcer of unspecified part of back, stage 4; E46 Unspecified protein-calorie malnutrition; I13.0 Hypertensive heart and chronic kidney disease with heart failure and stage 1 through stage 4 chronic kidney disease, or unspecified chronic kidney disease; J98.11 Atelectasis; N17.9 Acute kidney failure, unspecified; N39.0 Urinary tract infection, site not specified; C78.00 Secondary malignant neoplasm of unspecified lung; I42.9 Cardiomyopathy, unspecified; B96.4 Proteus (mirabilis) (morganii) as the cause of diseases classified elsewhere; D64.9 Anemia, unspecified; E03.9 Hypothyroidism, unspecified; E11.22 Type 2 diabetes mellitus with diabetic chronic kidney disease; E78.5 Hyperlipidemia, unspecified; E87.6 Hypokalemia; L89.159 Pressure ulcer of sacral region, unspecified stage; G83.11 Monoplegia of lower limb affecting right dominant side; L89.629 Pressure ulcer of left heel, unspecified stage; B96.89 Other specified bacterial agents as the cause of diseases classified elsewhere; E78.00 Pure hypercholesterolemia, unspecified; I25.10 Atherosclerotic heart disease of native coronary artery without angina pectoris; K21.9 Gastro-esophageal reflux disease without esophagitis; I27.20 Pulmonary hypertension, unspecified; L89.151 Pressure ulcer of sacral region, stage 1; K42.9 Umbilical hernia without obstruction or gangrene; N18.9 Chronic kidney disease, unspecified; Z74.01 Bed confinement status; Z79.4 Long term (current) use of insulin; Z79.890 Hormone replacement therapy; Z82.49 Family history of ischemic heart disease and other diseases of the circulatory system; Z85.42 Personal history of malignant neoplasm of other parts of uterus; Z90.710 Acquired absence of both cervix and uterus; Z95.5 Presence of coronary angioplasty implant and graft; Z98.1 Arthrodesis status; Z83.3 Family history of diabetes mellitus; Z88.0 Allergy status to penicillin; Z88.2 Allergy status to sulfonamides; I25.2 Old myocardial infarction; E83.42 Hypomagnesemia
CPT/HCPCS: 36415; 71045; 74177; 80048; 80061; 82550; 82553; 82570; 82962; 83036; 83605; 83735; 83880; 84100; 84134; 84145; 84156; 84439; 84443; 84481; 84484; 84550; 87070; 87077; 87106; 87186; 93005; 93306; 93970; 96365; 96366; 96375; 99285; C1893; J0692; J0696; J1200; J1650; J1815; J1940; J2405; J3475; J3490; J7030; J7050; J7060; P9047; Q9967

== ENCOUNTER 2018-12-29 12:59 | Inpatient (IN) | payer OTHER ==
[~2018-12-29] VITALS: Ht 152.4 cm; Wt 78.7 kg
[~2018-12-29 12:59] MED LIST changes: +ACET-2853 PO; +ASCO500C6 PO; -BUME2TAB34 PO; -CARV12.545 PO; +CLOP75TA4 PO; +COR6 PO; +DEXTL PO; +FAMO20TA8 PO; -GABA-290 PO; +HJ10 SUBCUT; +LEVO500T89 MT; -PANT40TA4 PO
[2018-12-29] MEDS ORDERED: FUROSEMIDE 40MG/4ML VIAL IV ONE (14:30)
[2018-12-29] MEDS ORDERED: ASPIRIN 81MG TABLET PO ONE (14:30)
[2018-12-29] MEDS ORDERED: NITROGLYCERIN OINT 1GM/INCH UDPKT TD ONE (14:30)
[2018-12-29 15:14] LABS: BASOPHILS % 0.7 % (0.0-2.0); EOSINOPHILS % 0.3 % (0.0-5.0); HEMATOCRIT. 29.7 % (36.0-48.0); HEMOGLOBIN. 10.2 g/dL (12.0-16.0); LYMPHOCYTES % 12.5 % (20.0-50.0); MEAN CORPUSCULAR HEMOGLOBIN 32.6 pg (28.0-32.0); MEAN CORPUSCULAR VOLUME 94.4 fL (81.0-99.0); MEAN PLATELET VOLUME 8.6 fl (7.4-10.4); MONOCYTES % 5.2 % (2.0-8.0); NEUTROPHILS % 81.3 % (40.0-76.0); PLATELET 308 x1000/uL (130-400); RED BLOOD CELL COUNT 3.14 mill/uL (4.2-5.4); RED CELL DISTRIBUTION WIDTH 13.9 % (11.6-14.6)
[2018-12-29 15:19] LABS: CHLORIDE 111 mEq/L (98-107)
[2018-12-29 15:38] LABS: PARTIAL THROMBOPLASTIN TIME 23.8 sec (23.4-31.0); PROTHROMBIN TIME 10.5 sec (9.6-11.0)
[2018-12-29] MEDS ORDERED: ENOXAPARIN 40MG/0.4ML SYR SUBCUT SCH (20:45)
[2018-12-29] MEDS ORDERED: ACETAMINOPHEN 325MG TABLET PO PRN (20:45)
[2018-12-29] MEDS ORDERED: DEXTROSE 50% WATER 50ML SYRINGE IV PRN ×2 (20:45)
[2018-12-29] MEDS ORDERED: CLONIDINE 0.1MG TABLET PO PRN (20:45)
[2018-12-29] MEDS ORDERED: ALBUTEROL 6.7GM HFA INHALER INH PRN (20:45)
[2018-12-29] MEDS ORDERED: MAGNESIUM/ALUMINUM HYDROXIDE/SIMETHICONE 30ML UDC PO PRN (20:45)
[2018-12-29] MEDS ORDERED: ONDANSETRON HCL 4MG/2ML INJ IV PRN (20:45)
[2018-12-29 23:00] VITALS: BP 152/96
[2018-12-29] MEDS ORDERED: ENOXAPARIN 30MG/0.3ML SYR SUBCUT SCH (23:00)
[2018-12-29] MEDS ORDERED: ALBUTEROL (0.083%) 2.5MG/3ML NEB HHN PRN (23:00)
[2018-12-29] MEDS: FAMOTIDINE 20MG TABLET PO SCH (23:21)
[2018-12-29] MEDS: ATORVASTATIN CALCIUM 40MG TABLET PO SCH (23:21)
[2018-12-29] MEDS: CARVEDILOL 6.25 MG TABLET PO SCH (23:22)
[2018-12-29] MEDS: INSULIN LISPRO 100 UNITS/ML SUBCUT SCH (23:23)
[2018-12-29] MEDS: BLOOD SUGAR DIAGNOSTIC STRIP TEST SCH (23:23)
[2018-12-29] MEDS: HYDROCODONE/ACETAMINOPHEN 5/325MG TABLET PO PRN (23:29)
[2018-12-29] MEDS ORDERED: INSULIN GLARGINE UD 100 UNITS/ML SYR SUBCUT NR (23:55)
[2018-12-30] VITALS (8 sets, daily range): BP systolic 115–152; BP diastolic 69–96
[2018-12-30] MEDS: BLOOD SUGAR DIAGNOSTIC STRIP TEST SCH ×4 (06:54→21:22)
[2018-12-30] MEDS: LEVOTHYROXINE SODIUM 175MCG TABLET PO SCH (06:54)
[2018-12-30] MEDS: INSULIN LISPRO 100 UNITS/ML SUBCUT SCH ×4 (06:56→21:00)
[2018-12-30] MEDS ORDERED: FUROSEMIDE 40MG/4ML VIAL IV SCH (09:00)
[2018-12-30] MEDS: CLOPIDOGREL 75MG TABLET PO SCH (09:57)
[2018-12-30] MEDS: ASPIRIN 81MG TABLET PO SCH (09:57)
[2018-12-30] MEDS: CARVEDILOL 6.25 MG TABLET PO SCH ×2 (09:57→21:34)
[2018-12-30 10:56] LABS: BASOPHILS % 1.2 % (0.0-2.0); EOSINOPHILS % 2.9 % (0.0-5.0); HEMATOCRIT. 26.8 % (36.0-48.0); HEMOGLOBIN. 9.3 g/dL (12.0-16.0); MEAN CORPUSCULAR HEMOGLOBIN 32.8 pg (28.0-32.0); MEAN CORPUSCULAR VOLUME 94.4 fL (81.0-99.0); MEAN PLATELET VOLUME 8.8 fl (7.4-10.4); MONOCYTES % 8.3 % (2.0-8.0); NEUTROPHILS % 69.6 % (40.0-76.0); PLATELET 296 x1000/uL (130-400); RED BLOOD CELL COUNT 2.83 mill/uL (4.2-5.4); RED CELL DISTRIBUTION WIDTH 13.7 % (11.6-14.6)
[2018-12-30] MEDS: NITROGLYCERIN OINT 1GM/INCH UDPKT TD SCH ×2 (14:08→21:35)
[2018-12-30] MEDS: FUROSEMIDE 100MG/10ML VIAL IV SCH (17:03)
[2018-12-30] MEDS: ENOXAPARIN 30MG/0.3ML SYR SUBCUT SCH (17:30)
[2018-12-30] MEDS: ATORVASTATIN CALCIUM 40MG TABLET PO SCH (21:33)
[2018-12-30] MEDS: NYSTATIN POWDER 15GM TOP SCH (21:33)
[2018-12-30] MEDS: FAMOTIDINE 20MG TABLET PO SCH (21:34)
[2018-12-30] MEDS ORDERED: INSULIN GLARGINE UD 100 UNITS/ML SYR SUBCUT SCH (22:00)
[2018-12-30] MEDS: INSULIN GLARGINE UD 100 UNITS/ML SYR SUBCUT SCH (22:25)
[2018-12-31] VITALS (11 sets, daily range): BP systolic 134–149; BP diastolic 69–97
[2018-12-31] MEDS: ENOXAPARIN 30MG/0.3ML SYR SUBCUT SCH (06:00)
[2018-12-31] MEDS: FUROSEMIDE 100MG/10ML VIAL IV SCH (06:36)
[2018-12-31] MEDS: NITROGLYCERIN OINT 1GM/INCH UDPKT TD SCH ×3 (06:37→22:14)
[2018-12-31] MEDS: BLOOD SUGAR DIAGNOSTIC STRIP TEST SCH ×4 (06:41→21:13)
[2018-12-31 07:09] LABS: BASOPHILS % 1.9 % (0.0-2.0); EOSINOPHILS % 3.5 % (0.0-5.0); HEMATOCRIT. 26.1 % (36.0-48.0); LYMPHOCYTES % 20.8 % (20.0-50.0); MEAN CORPUSCULAR HEMOGLOBIN 32.7 pg (28.0-32.0); MEAN CORPUSCULAR VOLUME 94.5 fL (81.0-99.0); MEAN PLATELET VOLUME 8.9 fl (7.4-10.4); MONOCYTES % 7.9 % (2.0-8.0); NEUTROPHILS % 65.9 % (40.0-76.0); PLATELET 289 x1000/uL (130-400); RED BLOOD CELL COUNT 2.76 mill/uL (4.2-5.4); RED CELL DISTRIBUTION WIDTH 13.8 % (11.6-14.6)
[2018-12-31] MEDS: INSULIN LISPRO 100 UNITS/ML SUBCUT SCH ×4 (07:20→21:00)
[2018-12-31] MEDS: CLOPIDOGREL 75MG TABLET PO SCH (08:23)
[2018-12-31] MEDS: CARVEDILOL 6.25 MG TABLET PO SCH ×2 (08:24→21:37)
[2018-12-31] MEDS: LEVOTHYROXINE SODIUM 175MCG TABLET PO SCH (08:24)
[2018-12-31] MEDS: NYSTATIN POWDER 15GM TOP SCH ×2 (08:29→17:00)
[2018-12-31] MEDS: ASPIRIN 81MG TABLET PO SCH (08:31)
[2018-12-31] MEDS: FAMOTIDINE 20MG TABLET PO SCH (21:35)
[2018-12-31] MEDS: ATORVASTATIN CALCIUM 40MG TABLET PO SCH (21:36)
[2018-12-31] MEDS: HYDROCODONE/ACETAMINOPHEN 5/325MG TABLET PO PRN (21:36)
[2018-12-31] MEDS: INSULIN GLARGINE UD 100 UNITS/ML SYR SUBCUT SCH (22:15)
[2019-01-01] VITALS: BP 141/79
[2019-01-01 02:00] VITALS: BP 133/80
[2019-01-01 06:00] VITALS: BP 123/87
[2019-01-01] MEDS: LEVOTHYROXINE SODIUM 175MCG TABLET PO SCH (06:34)
[2019-01-01] MEDS: NITROGLYCERIN OINT 1GM/INCH UDPKT TD SCH (06:35)
[2019-01-01] MEDS: BLOOD SUGAR DIAGNOSTIC STRIP TEST SCH (06:43)
[2019-01-01] MEDS: INSULIN LISPRO 100 UNITS/ML SUBCUT SCH (07:20)
[2019-01-01 07:44] LABS: BASOPHILS % 2.2 % (0.0-2.0); EOSINOPHILS % 3.5 % (0.0-5.0); HEMATOCRIT. 25.4 % (36.0-48.0); HEMOGLOBIN. 8.8 g/dL (12.0-16.0); LYMPHOCYTES % 26.9 % (20.0-50.0); MEAN CORPUSCULAR HEMOGLOBIN 32.6 pg (28.0-32.0); MEAN CORPUSCULAR VOLUME 94.2 fL (81.0-99.0); MONOCYTES % 8.7 % (2.0-8.0); NEUTROPHILS % 58.7 % (40.0-76.0); PLATELET 288 x1000/uL (130-400); RED BLOOD CELL COUNT 2.69 mill/uL (4.2-5.4); RED CELL DISTRIBUTION WIDTH 13.8 % (11.6-14.6)
[2019-01-01 08:00] VITALS: BP 130/76
[2019-01-01] MEDS ORDERED: FUROSEMIDE 100MG/10ML VIAL IV SCH (09:00)
[2019-01-01] MEDS ORDERED: ENOXAPARIN 30MG/0.3ML SYR SUBCUT SCH (09:00)
[2019-01-01] MEDS: CLOPIDOGREL 75MG TABLET PO SCH (09:15)
[2019-01-01] MEDS: NYSTATIN POWDER 15GM TOP SCH (09:15)
[2019-01-01] MEDS: ASPIRIN 81MG TABLET PO SCH (09:15)
[2019-01-01] MEDS: CARVEDILOL 6.25 MG TABLET PO SCH (09:15)
[2019-01-01 12:26] VITALS: BP 133/85
[2019-01-01] MEDS ORDERED: INSULIN GLARGINE UD 100 UNITS/ML SYR SUBCUT SCH (22:00)
[2019-01-02] MEDS ORDERED: FUROSEMIDE 20MG TABLET PO SCH (09:00)
== END 2019-01-01 13:00 | disposition home or self-care (01) | DRG 280 ==
LOC: ER 12:59 → 8WST 17:45 → EDBEDREQ 17:49 → EDBEDREQTM 17:49 → ENRESERV 21:45 → 3WST 12-30 14:54
PROVIDERS: ADMIT Family Medicine Adult Medicine; ATTEND Family Medicine Adult Medicine
DX: I21.4 Non-ST elevation (NSTEMI) myocardial infarction (principal); J96.00 Acute respiratory failure, unspecified whether with hypoxia or hypercapnia; I50.43 Acute on chronic combined systolic (congestive) and diastolic (congestive) heart failure; I13.0 Hypertensive heart and chronic kidney disease with heart failure and stage 1 through stage 4 chronic kidney disease, or unspecified chronic kidney disease; E46 Unspecified protein-calorie malnutrition; I27.20 Pulmonary hypertension, unspecified; E11.22 Type 2 diabetes mellitus with diabetic chronic kidney disease; I25.10 Atherosclerotic heart disease of native coronary artery without angina pectoris; S91.209A Unspecified open wound of unspecified toe(s) with damage to nail, initial encounter; E87.70 Fluid overload, unspecified; E66.9 Obesity, unspecified; N18.9 Chronic kidney disease, unspecified; I25.5 Ischemic cardiomyopathy; D64.9 Anemia, unspecified; E03.9 Hypothyroidism, unspecified; E78.5 Hyperlipidemia, unspecified; I07.1 Rheumatic tricuspid insufficiency; L89.159 Pressure ulcer of sacral region, unspecified stage; L89.629 Pressure ulcer of left heel, unspecified stage; Z74.01 Bed confinement status; Z79.4 Long term (current) use of insulin; I25.2 Old myocardial infarction; Z86.73 Personal history of transient ischemic attack (TIA), and cerebral infarction without residual deficits; Z95.5 Presence of coronary angioplasty implant and graft; Z90.710 Acquired absence of both cervix and uterus; Z88.0 Allergy status to penicillin; Z88.2 Allergy status to sulfonamides; Z88.8 Allergy status to other drugs, medicaments and biological substances; Z91.19 Patient's noncompliance with other medical treatment and regimen; X58.XXXA Exposure to other specified factors, initial encounter; Y93.89 Activity, other specified; Y92.89 Other specified places as the place of occurrence of the external cause; Y99.8 Other external cause status
CPT/HCPCS: 36415; 71045; 80048; 80061; 82962; 83036; 83735; 83880; 84100; 84134; 84443; 84484; 93005; 93306; 93970; 96374; 97162; 97166; 99285; J1650; J1815; J1940

== ENCOUNTER 2019-01-02 12:56 | Emergency (ER) | payer OTHER ==
[~2019-01-02] VITALS: Ht 162.6 cm; Wt 60.0 kg
[2019-01-02 14:14] LABS: BASOPHILS % 0.3 % (0.0-2.0); EOSINOPHILS % 0.9 % (0.0-5.0); HEMATOCRIT. 27.7 % (36.0-48.0); HEMOGLOBIN. 9.6 g/dL (12.0-16.0); LYMPHOCYTES % 23.1 % (20.0-50.0); MEAN CORPUSCULAR HEMOGLOBIN 32.5 pg (28.0-32.0); MEAN CORPUSCULAR VOLUME 94.2 fL (81.0-99.0); MEAN PLATELET VOLUME 8.7 fl (7.4-10.4); MONOCYTES % 7.1 % (2.0-8.0); NEUTROPHILS % 68.6 % (40.0-76.0); PLATELET 298 x1000/uL (130-400); RED BLOOD CELL COUNT 2.94 mill/uL (4.2-5.4); RED CELL DISTRIBUTION WIDTH 13.8 % (11.6-14.6)
[2019-01-02 14:22] LABS: CHLORIDE 110 mEq/L (98-107)
[2019-01-02 14:23] LABS: INR 1.1
[2019-01-02] MEDS ORDERED: VISCOUS LIDOCAINE 2% 15 ML UDC PO NR (14:43)
[2019-01-02] MEDS ORDERED: MAGNESIUM/ALUMINUM HYDROXIDE/SIMETHICONE 30ML UDC PO NR (14:43)
[2019-01-02] MEDS ORDERED: FAMOTIDINE 20MG/2ML VIAL IV NR (14:43)
[2019-01-02 19:30] VITALS: BP 148/88
== END 2019-01-02 22:21 | disposition home or self-care (01) ==
LOC: ER 12:56
DX: R10.9 Unspecified abdominal pain (principal); I13.0 Hypertensive heart and chronic kidney disease with heart failure and stage 1 through stage 4 chronic kidney disease, or unspecified chronic kidney disease; N18.9 Chronic kidney disease, unspecified; I50.9 Heart failure, unspecified; E03.9 Hypothyroidism, unspecified; E78.5 Hyperlipidemia, unspecified; E11.9 Type 2 diabetes mellitus without complications; I25.10 Atherosclerotic heart disease of native coronary artery without angina pectoris; Z79.4 Long term (current) use of insulin; Z88.0 Allergy status to penicillin; Z88.2 Allergy status to sulfonamides; Z88.8 Allergy status to other drugs, medicaments and biological substances; Z79.82 Long term (current) use of aspirin; Z86.73 Personal history of transient ischemic attack (TIA), and cerebral infarction without residual deficits; Z98.62 Peripheral vascular angioplasty status
CPT/HCPCS: 36415; 71045; 80053; 82962; 83690; 83880; 84484; 85025; 85610; 93005; 96374; 99284; J3490

== ENCOUNTER 2019-01-10 12:51 | Inpatient (IN) | payer OTHER ==
[~2019-01-10] VITALS: Ht 157.5 cm; Wt 81.2 kg
[2019-01-10] MEDS ORDERED: FUROSEMIDE 40MG/4ML VIAL IV ONE (13:15)
[2019-01-10] MEDS ORDERED: ALBUTEROL (0.083%) 2.5MG/3ML NEB HHN ONE (13:15)
[2019-01-10] MEDS ORDERED: ASPIRIN 81MG TABLET PO ONE (13:15)
[2019-01-10 14:07] LABS: BASOPHILS % 0.9 % (0.0-2.0); EOSINOPHILS % 0.6 % (0.0-5.0); HEMATOCRIT. 31.6 % (36.0-48.0); HEMOGLOBIN. 10.7 g/dL (12.0-16.0); LYMPHOCYTES % 13.9 % (20.0-50.0); MEAN CORPUSCULAR HEMOGLOBIN 32.2 pg (28.0-32.0); MEAN PLATELET VOLUME 8.9 fl (7.4-10.4); MONOCYTES % 5.3 % (2.0-8.0); NEUTROPHILS % 79.3 % (40.0-76.0); PLATELET 255 x1000/uL (130-400); RED BLOOD CELL COUNT 3.33 mill/uL (4.2-5.4); RED CELL DISTRIBUTION WIDTH 14.7 % (11.6-14.6)
[2019-01-10 15:13] LABS: CHLORIDE 108 mEq/L (98-107)
[2019-01-10] MEDS ORDERED: CLONIDINE 0.1MG TABLET PO PRN (17:30)
[2019-01-10] MEDS ORDERED: ONDANSETRON HCL 4MG/2ML INJ IV PRN (17:30)
[2019-01-10 18:00] VITALS: BP 141/81
[2019-01-10 20:00] VITALS: BP 146/80
[2019-01-10] MEDS ORDERED: ZOLPIDEM TARTRATE 5MG TABLET PO PRN (21:00)
[2019-01-10] MEDS ORDERED: ENOXAPARIN 30MG/0.3ML SYR SUBCUT SCH (21:00)
[2019-01-10] MEDS: CARVEDILOL 12.5MG TABLET PO SCH (21:56)
[2019-01-10] MEDS: AMLODIPINE 5MG TABLET PO SCH (21:56)
[2019-01-10 22:01] VITALS: BP 146/80
[2019-01-11] VITALS: BP 141/80
[2019-01-11] MEDS ORDERED: FUROSEMIDE 40MG/4ML VIAL IVP SCH (02:00)
[2019-01-11 03:57] LABS: CLARITY URINE TURBID (CLEAR); COLOR URINE YELLOW (YELLOW); KETONES URINE NEGATIVE (NEGATIVE); LEUKOCYTE ESTERASE URINE 3+ (NEGATIVE); NITRITE URINE NEGATIVE (NEGATIVE); OCCULT BLOOD URINE 2+ (NEGATIVE); PROTEIN URINE 3+ (NEGATIVE); SPECIFIC GRAVITY URINE 1.011 (1.005-1.030); UROBILINOGEN URINE 0.2 E.U./dL (0.2-1.0)
[2019-01-11 04:00] VITALS: BP 140/68
[2019-01-11] MEDS: LEVOTHYROXINE SODIUM 50MCG TABLET PO SCH (06:07)
[2019-01-11 08:00] VITALS: BP 137/78
[2019-01-11] MEDS ORDERED: ASPIRIN 81MG TABLET PO SCH (09:00)
[2019-01-11] MEDS ORDERED: ASPIRIN 81MG EC TABLET PO SCH (09:00)
[2019-01-11] MEDS: CARVEDILOL 12.5MG TABLET PO SCH ×2 (09:37→22:06)
[2019-01-11] MEDS: CLOPIDOGREL 75MG TABLET PO SCH (09:37)
[2019-01-11] MEDS: LISINOPRIL 2.5MG TABLET PO SCH (09:38)
[2019-01-11] MEDS: AMLODIPINE 5MG TABLET PO SCH ×2 (09:38→22:06)
[2019-01-11] MEDS: ENOXAPARIN 40MG/0.4ML SYR SUBCUT SCH (09:39)
[2019-01-11] MEDS: FUROSEMIDE 100MG/10ML VIAL IVP SCH ×2 (10:14→19:12)
[2019-01-11] MEDS: LEVOFLOXACIN 500MG PREMIX 100 ML IV SCH (11:38)
[2019-01-11 12:00] VITALS: BP 134/76
[2019-01-11] MEDS ORDERED: LIDOCAINE 1%/EPI 1:100,000 10 ML VIAL IJ NR (14:00)
[2019-01-11 16:00] VITALS: BP 138/75
[2019-01-11 16:09] LABS: EOSINOPHILS % 1.7 % (0.0-5.0); HEMATOCRIT. 28.3 % (36.0-48.0); HEMOGLOBIN. 9.6 g/dL (12.0-16.0); LYMPHOCYTES % 15.1 % (20.0-50.0); MEAN CORPUSCULAR VOLUME 94.4 fL (81.0-99.0); MEAN PLATELET VOLUME 8.9 fl (7.4-10.4); MONOCYTES % 7.5 % (2.0-8.0); NEUTROPHILS % 74.7 % (40.0-76.0); PLATELET 235 x1000/uL (130-400); RED CELL DISTRIBUTION WIDTH 14.2 % (11.6-14.6)
[2019-01-11 16:12] LABS: CHLORIDE 106 mEq/L (98-107)
[2019-01-11 20:00] VITALS: BP 132/74
[2019-01-11] MEDS: ATORVASTATIN CALCIUM 40MG TABLET PO SCH (22:06)
[2019-01-12] VITALS: BP 140/86
[2019-01-12] MEDS: FUROSEMIDE 100MG/10ML VIAL IVP SCH ×3 (02:16→18:50)
[2019-01-12 04:00] VITALS: BP 132/52
[2019-01-12] MEDS: LEVOTHYROXINE SODIUM 50MCG TABLET PO SCH (06:04)
[2019-01-12 06:49] LABS: BASOPHILS % 1.3 % (0.0-2.0); EOSINOPHILS % 1.6 % (0.0-5.0); HEMOGLOBIN. 9.5 g/dL (12.0-16.0); LYMPHOCYTES % 17.9 % (20.0-50.0); MEAN CORPUSCULAR HEMOGLOBIN 32.2 pg (28.0-32.0); MEAN CORPUSCULAR VOLUME 95.2 fL (81.0-99.0); MEAN PLATELET VOLUME 8.9 fl (7.4-10.4); MONOCYTES % 9.3 % (2.0-8.0); NEUTROPHILS % 69.9 % (40.0-76.0); PLATELET 208 x1000/uL (130-400); RED BLOOD CELL COUNT 2.94 mill/uL (4.2-5.4); RED CELL DISTRIBUTION WIDTH 14.1 % (11.6-14.6)
[2019-01-12 07:37] LABS: CHLORIDE 107 mEq/L (98-107)
[2019-01-12 08:00] VITALS: BP 120/75
[2019-01-12] MEDS ORDERED: POTASSIUM CHLORIDE 20MEQ TABLET SR PO SCH (08:15)
[2019-01-12] MEDS: ENOXAPARIN 40MG/0.4ML SYR SUBCUT SCH (08:42)
[2019-01-12] MEDS: CLOPIDOGREL 75MG TABLET PO SCH (08:42)
[2019-01-12] MEDS: LISINOPRIL 2.5MG TABLET PO SCH (08:42)
[2019-01-12] MEDS: AMLODIPINE 5MG TABLET PO SCH ×2 (08:43→22:40)
[2019-01-12] MEDS: CARVEDILOL 12.5MG TABLET PO SCH ×2 (08:43→22:39)
[2019-01-12] MEDS: LEVOFLOXACIN 500MG PREMIX 100 ML IV SCH (10:10)
[2019-01-12 12:00] VITALS: BP 133/66
[2019-01-12 16:00] VITALS: BP 135/60
[2019-01-12 20:00] VITALS: BP 134/73
[2019-01-12] MEDS: ATORVASTATIN CALCIUM 40MG TABLET PO SCH (22:39)
[2019-01-12] MEDS: POTASSIUM CHLORIDE 20MEQ TABLET SR PO SCH (22:39)
[2019-01-13] VITALS: BP 125/55
[2019-01-13] MEDS: FUROSEMIDE 100MG/10ML VIAL IVP SCH ×2 (02:15→10:49)
[2019-01-13 04:00] VITALS: BP 130/66
[2019-01-13] MEDS: LEVOTHYROXINE SODIUM 50MCG TABLET PO SCH (06:50)
[2019-01-13 07:16] LABS: BASOPHILS % 1.2 % (0.0-2.0); EOSINOPHILS % 1.9 % (0.0-5.0); HEMATOCRIT. 27.4 % (36.0-48.0); HEMOGLOBIN. 9.3 g/dL (12.0-16.0); LYMPHOCYTES % 21.7 % (20.0-50.0); MEAN CORPUSCULAR HEMOGLOBIN 32.2 pg (28.0-32.0); MEAN CORPUSCULAR VOLUME 94.6 fL (81.0-99.0); MEAN PLATELET VOLUME 8.8 fl (7.4-10.4); MONOCYTES % 12.6 % (2.0-8.0); NEUTROPHILS % 62.6 % (40.0-76.0); PLATELET 203 x1000/uL (130-400); RED CELL DISTRIBUTION WIDTH 14.1 % (11.6-14.6)
[2019-01-13 08:00] VITALS: BP 131/67
[2019-01-13] MEDS: LISINOPRIL 2.5MG TABLET PO SCH (08:52)
[2019-01-13] MEDS: CLOPIDOGREL 75MG TABLET PO SCH (08:52)
[2019-01-13] MEDS: AMLODIPINE 5MG TABLET PO SCH ×2 (08:52→21:30)
[2019-01-13] MEDS: POTASSIUM CHLORIDE 20MEQ TABLET SR PO SCH ×2 (08:53→17:09)
[2019-01-13] MEDS: CARVEDILOL 12.5MG TABLET PO SCH ×2 (08:53→21:29)
[2019-01-13] MEDS: ENOXAPARIN 40MG/0.4ML SYR SUBCUT SCH (08:54)
[2019-01-13] MEDS: LEVOFLOXACIN 500MG PREMIX 100 ML IV SCH (10:50)
[2019-01-13 12:00] VITALS: BP 129/67
[2019-01-13 16:00] VITALS: BP 140/65
[2019-01-13 20:00] VITALS: BP 143/65
[2019-01-13] MEDS: FUROSEMIDE 40MG TABLET PO SCH (21:29)
[2019-01-13] MEDS: ATORVASTATIN CALCIUM 40MG TABLET PO SCH (21:30)
[2019-01-14] VITALS: BP 123/65
[2019-01-14 04:00] VITALS: BP 118/64
[2019-01-14] MEDS: LEVOTHYROXINE SODIUM 50MCG TABLET PO SCH (06:27)
[2019-01-14] MEDS: POTASSIUM CHLORIDE 20MEQ TABLET SR PO SCH ×2 (09:10→17:00)
[2019-01-14] MEDS: FUROSEMIDE 40MG TABLET PO SCH ×2 (09:10→21:50)
[2019-01-14] MEDS: LISINOPRIL 2.5MG TABLET PO SCH (09:10)
[2019-01-14] MEDS: CLOPIDOGREL 75MG TABLET PO SCH (09:10)
[2019-01-14] MEDS: AMLODIPINE 5MG TABLET PO SCH ×2 (09:11→21:50)
[2019-01-14] MEDS: CARVEDILOL 12.5MG TABLET PO SCH ×2 (09:11→21:50)
[2019-01-14] MEDS: ENOXAPARIN 40MG/0.4ML SYR SUBCUT SCH (09:12)
[2019-01-14] MEDS: LEVOFLOXACIN 500MG PREMIX 100 ML IV SCH (11:31)
[2019-01-14] MEDS ORDERED: COR12 PO (15:21)
[2019-01-14] MEDS ORDERED: FURO40TA5 PO (15:21)
[2019-01-14] MEDS ORDERED: LISI2.5T47 PO (15:21)
[2019-01-14] MEDS ORDERED: AMLO5TAB88 PO (15:21)
[2019-01-14] MEDS ORDERED: POTA20TA82 MT (15:26)
[2019-01-14 16:05] VITALS: BP 131/85
[2019-01-14 20:00] VITALS: BP 117/42
[2019-01-14] MEDS: ATORVASTATIN CALCIUM 40MG TABLET PO SCH (21:49)
[2019-01-14] MEDS: ACETAMINOPHEN 325MG TABLET PO PRN (21:51)
[2019-01-15] VITALS: BP 141/68
[2019-01-15 04:00] VITALS: BP 132/76
[2019-01-15] MEDS: LEVOTHYROXINE SODIUM 50MCG TABLET PO SCH (05:37)
[2019-01-15] MEDS: ACETAMINOPHEN 325MG TABLET PO PRN ×2 (05:38→20:52)
[2019-01-15 08:00] VITALS: BP 128/67
[2019-01-15] MEDS: POTASSIUM CHLORIDE 20MEQ TABLET SR PO SCH ×2 (09:04→17:45)
[2019-01-15] MEDS: ENOXAPARIN 40MG/0.4ML SYR SUBCUT SCH (09:04)
[2019-01-15] MEDS: FUROSEMIDE 40MG TABLET PO SCH ×2 (09:04→20:53)
[2019-01-15] MEDS: CARVEDILOL 12.5MG TABLET PO SCH ×2 (09:05→20:52)
[2019-01-15] MEDS: LISINOPRIL 2.5MG TABLET PO SCH (09:05)
[2019-01-15] MEDS: CLOPIDOGREL 75MG TABLET PO SCH (09:05)
[2019-01-15] MEDS: AMLODIPINE 5MG TABLET PO SCH ×2 (09:05→20:53)
[2019-01-15 10:00] LABS: BG BASE EXCESS 4.5 mmol/L (-2.0-2.0); BG CARBOXYHEMOGLOBIN 0.3 % (0.5-1.5); BG DEOXYHEMOGLOBIN 5.8 % (0.0-5.0); BG FRACTION INSPIRED OXYGEN 28; BG HCO3 ACT 28.9 mmol/L (22.0-26.0); BG METHEMOGLOBIN 0.1 % (0.0-1.5); BG OXYGEN SATURATION 94.2 % (92.0-98.5); BG OXYHEMOGLOBIN 93.8 % (94.0-97.0); BG PH 7.455 (7.350-7.450); BG PO2 72.1 mmHg (75.0-100.0); BG SAMPLE SITE RIGHT BRACHIAL; BG TOTAL HEMOGLOBIN 10.3 g/dL (12.0-18.0); BG VENT MODE NASAL CANNULA
[2019-01-15] MEDS: LEVOFLOXACIN 250MG TABLET PO SCH (11:00)
[2019-01-15 12:00] VITALS: BP 136/65
[2019-01-15 12:08] LABS: BG BASE EXCESS 5.1 mmol/L (-2.0-2.0); BG CARBOXYHEMOGLOBIN 0.3 % (0.5-1.5); BG DEOXYHEMOGLOBIN 11.6 % (0.0-5.0); BG FRACTION INSPIRED OXYGEN 21; BG HCO3 ACT 29.3 mmol/L (22.0-26.0); BG METHEMOGLOBIN 0.3 % (0.0-1.5); BG OXYGEN SATURATION 88.3 % (92.0-98.5); BG OXYHEMOGLOBIN 87.8 % (94.0-97.0); BG PCO2 42.1 mmHg (35.0-45.0); BG PH 7.461 (7.350-7.450); BG PO2 53.5 mmHg (75.0-100.0); BG SAMPLE SITE RIGHT BRACHIAL; BG TOTAL HEMOGLOBIN 10.3 g/dL (12.0-18.0); BG VENT MODE ROOM AIR
[2019-01-15 16:00] VITALS: BP 154/70
[2019-01-15 20:00] VITALS: BP 119/65
[2019-01-15] MEDS: ATORVASTATIN CALCIUM 40MG TABLET PO SCH (20:53)
[2019-01-16] VITALS: BP 108/36
[2019-01-16 04:00] VITALS: BP 119/68
[2019-01-16] MEDS: LEVOTHYROXINE SODIUM 50MCG TABLET PO SCH (05:51)
[2019-01-16 08:00] VITALS: BP 138/79
[2019-01-16] MEDS: POTASSIUM CHLORIDE 20MEQ TABLET SR PO SCH ×2 (08:59→17:54)
[2019-01-16] MEDS: FUROSEMIDE 40MG TABLET PO SCH ×2 (08:59→21:14)
[2019-01-16] MEDS: CLOPIDOGREL 75MG TABLET PO SCH (09:00)
[2019-01-16] MEDS: LISINOPRIL 2.5MG TABLET PO SCH (09:01)
[2019-01-16] MEDS: AMLODIPINE 5MG TABLET PO SCH ×2 (09:01→21:18)
[2019-01-16] MEDS: ENOXAPARIN 40MG/0.4ML SYR SUBCUT SCH (09:01)
[2019-01-16] MEDS: CARVEDILOL 12.5MG TABLET PO SCH ×2 (09:02→21:15)
[2019-01-16] MEDS: LEVOFLOXACIN 250MG TABLET PO SCH (11:07)
[2019-01-16 12:00] VITALS: BP 128/74
[2019-01-16] MEDS ORDERED: IPRATROPIUM/ALBUTEROL 0.5-3(2.5)MG/3ML NEB HHN PRN (12:45)
[2019-01-16 16:00] VITALS: BP 123/61
[2019-01-16 20:00] VITALS: BP 127/61
[2019-01-16] MEDS: ATORVASTATIN CALCIUM 40MG TABLET PO SCH (21:14)
[2019-01-16] MEDS: ACETAMINOPHEN 325MG TABLET PO PRN (21:14)
[2019-01-17] VITALS: BP 146/58
[2019-01-17 04:00] VITALS: BP 126/43
[2019-01-17] MEDS: LEVOTHYROXINE SODIUM 50MCG TABLET PO SCH (06:13)
[2019-01-17 08:00] VITALS: BP 129/99
[2019-01-17] MEDS: CLOPIDOGREL 75MG TABLET PO SCH (09:06)
[2019-01-17] MEDS: FUROSEMIDE 40MG TABLET PO SCH ×2 (09:06→21:05)
[2019-01-17] MEDS: LISINOPRIL 2.5MG TABLET PO SCH (09:06)
[2019-01-17] MEDS: POTASSIUM CHLORIDE 20MEQ TABLET SR PO SCH ×2 (09:06→16:00)
[2019-01-17] MEDS: ENOXAPARIN 40MG/0.4ML SYR SUBCUT SCH (09:07)
[2019-01-17] MEDS: AMLODIPINE 5MG TABLET PO SCH ×2 (09:07→21:19)
[2019-01-17] MEDS: CARVEDILOL 12.5MG TABLET PO SCH ×2 (09:07→21:19)
[2019-01-17] MEDS: LEVOFLOXACIN 250MG TABLET PO SCH (11:15)
[2019-01-17 12:00] VITALS: BP 126/63
[2019-01-17] MEDS: ACETAMINOPHEN 325MG TABLET PO PRN ×2 (15:54→21:18)
[2019-01-17 16:00] VITALS: BP 137/67
[2019-01-17 20:00] VITALS: BP 131/61
[2019-01-17] MEDS: ATORVASTATIN CALCIUM 40MG TABLET PO SCH (21:18)
[2019-01-18] VITALS (8 sets, daily range): BP systolic 109–166; BP diastolic 53–69
[2019-01-18] MEDS: ACETAMINOPHEN 325MG TABLET PO PRN (03:18)
[2019-01-18] MEDS: LEVOTHYROXINE SODIUM 50MCG TABLET PO SCH (05:49)
[2019-01-18] MEDS: POTASSIUM CHLORIDE 20MEQ TABLET SR PO SCH ×2 (10:14→18:13)
[2019-01-18] MEDS: FUROSEMIDE 40MG TABLET PO SCH ×2 (10:14→20:36)
[2019-01-18] MEDS: LISINOPRIL 2.5MG TABLET PO SCH (10:14)
[2019-01-18] MEDS: CLOPIDOGREL 75MG TABLET PO SCH (10:14)
[2019-01-18] MEDS: AMLODIPINE 5MG TABLET PO SCH ×2 (10:15→20:35)
[2019-01-18] MEDS: CARVEDILOL 12.5MG TABLET PO SCH ×2 (10:16→20:36)
[2019-01-18] MEDS: ENOXAPARIN 40MG/0.4ML SYR SUBCUT SCH (10:16)
[2019-01-18 11:37] LABS: BG BASE EXCESS 2.7 mmol/L (-2.0-2.0); BG CARBOXYHEMOGLOBIN 0.3 % (0.5-1.5); BG FRACTION INSPIRED OXYGEN 28; BG HCO3 ACT 26.8 mmol/L (22.0-26.0); BG METHEMOGLOBIN 0.6 % (0.0-1.5); BG OXYHEMOGLOBIN 96.1 % (94.0-97.0); BG PCO2 39.3 mmHg (35.0-45.0); BG PH 7.451 (7.350-7.450); BG PO2 97.4 mmHg (75.0-100.0); BG SAMPLE SITE RIGHT RADIAL; BG TOTAL HEMOGLOBIN 10.2 g/dL (12.0-18.0); BG VENT MODE NASAL CANNULA
[2019-01-18] MEDS: LEVOFLOXACIN 250MG TABLET PO SCH (13:15)
[2019-01-18 13:40] LABS: BG BASE EXCESS 3.3 mmol/L (-2.0-2.0); BG DEOXYHEMOGLOBIN 11.9 % (0.0-5.0); BG FRACTION INSPIRED OXYGEN 21; BG HCO3 ACT 27.3 mmol/L (22.0-26.0); BG METHEMOGLOBIN 0.1 % (0.0-1.5); BG OXYGEN SATURATION 88.1 % (92.0-98.5); BG PCO2 39.2 mmHg (35.0-45.0); BG PH 7.461 (7.350-7.450); BG PO2 52.2 mmHg (75.0-100.0); BG SAMPLE SITE RIGHT BRACHIAL; BG TOTAL HEMOGLOBIN 10.5 g/dL (12.0-18.0); BG VENT MODE ROOM AIR
[2019-01-18] MEDS: ATORVASTATIN CALCIUM 40MG TABLET PO SCH (20:36)
[2019-01-19] VITALS: BP 120/59
[2019-01-19 04:00] VITALS: BP 105/43
[2019-01-19] MEDS: ACETAMINOPHEN 325MG TABLET PO PRN (05:44)
[2019-01-19] MEDS: LEVOTHYROXINE SODIUM 50MCG TABLET PO SCH (05:46)
[2019-01-19 08:00] VITALS: BP 135/63
[2019-01-19] MEDS: CLOPIDOGREL 75MG TABLET PO SCH (08:40)
[2019-01-19] MEDS: CARVEDILOL 12.5MG TABLET PO SCH ×2 (08:41→21:43)
[2019-01-19] MEDS: AMLODIPINE 5MG TABLET PO SCH ×2 (08:41→21:43)
[2019-01-19] MEDS: ENOXAPARIN 40MG/0.4ML SYR SUBCUT SCH (08:42)
[2019-01-19] MEDS: POTASSIUM CHLORIDE 20MEQ TABLET SR PO SCH ×2 (08:42→17:59)
[2019-01-19] MEDS: LISINOPRIL 2.5MG TABLET PO SCH (08:42)
[2019-01-19] MEDS: FUROSEMIDE 40MG TABLET PO SCH ×2 (08:42→21:44)
[2019-01-19 12:00] VITALS: BP 122/58
[2019-01-19] MEDS ORDERED: DIPHENOXYLATE/ATROPINE 2.5/0.025MG TABLET PO NR (14:15)
[2019-01-19 16:00] VITALS: BP 132/65
[2019-01-19 20:00] VITALS: BP 123/56
[2019-01-19] MEDS: ATORVASTATIN CALCIUM 40MG TABLET PO SCH (21:43)
[2019-01-20] VITALS: BP 139/64
[2019-01-20 04:00] VITALS: BP 127/56
[2019-01-20] MEDS: LEVOTHYROXINE SODIUM 50MCG TABLET PO SCH (05:51)
[2019-01-20 07:26] LABS: BASOPHILS % 0.7 % (0.0-2.0); EOSINOPHILS % 1.1 % (0.0-5.0); HEMOGLOBIN. 9.5 g/dL (12.0-16.0); LYMPHOCYTES % 14.2 % (20.0-50.0); MEAN CORPUSCULAR HEMOGLOBIN 31.9 pg (28.0-32.0); MEAN CORPUSCULAR VOLUME 93.4 fL (81.0-99.0); MEAN PLATELET VOLUME 9.3 fl (7.4-10.4); MONOCYTES % 12.5 % (2.0-8.0); NEUTROPHILS % 71.5 % (40.0-76.0); PLATELET 167 x1000/uL (130-400); RED CELL DISTRIBUTION WIDTH 13.4 % (11.6-14.6)
[2019-01-20] MEDS: ENOXAPARIN 40MG/0.4ML SYR SUBCUT SCH (07:52)
[2019-01-20] MEDS: FUROSEMIDE 40MG TABLET PO SCH (07:52)
[2019-01-20] MEDS: LISINOPRIL 2.5MG TABLET PO SCH (07:52)
[2019-01-20] MEDS: AMLODIPINE 5MG TABLET PO SCH (07:53)
[2019-01-20] MEDS: POTASSIUM CHLORIDE 20MEQ TABLET SR PO SCH ×2 (07:53→15:48)
[2019-01-20] MEDS: CLOPIDOGREL 75MG TABLET PO SCH (07:53)
[2019-01-20] MEDS: CARVEDILOL 12.5MG TABLET PO SCH (07:53)
[2019-01-20 08:00] VITALS: BP 125/63
[2019-01-20] MEDS ORDERED: LOPERAMIDE HCL 2MG CAPSULE PO PRN (10:45)
[2019-01-20 12:00] VITALS: BP 123/54
[2019-01-20 14:14] VITALS: BP 123/54
[2019-01-20 16:00] VITALS: BP 251/87
[2019-01-21] MEDS ORDERED: SODIUM CHLORIDE 0.9% 500 ML IV SCH (19:00)
== END 2019-01-20 19:25 | disposition home health service (06) | DRG 981 ==
LOC: ER 12:51 → 5WST 14:47 → EDBEDREQ 15:01 → ENRESERV 17:14
PROVIDERS: ADMIT Internal Medicine; ATTEND Internal Medicine
PROC: 0KBF0ZZ Excision of Right Trunk Muscle, Open Approach (ICD-10-PCS; principal; 2019-01-11)
DX: I13.0 Hypertensive heart and chronic kidney disease with heart failure and stage 1 through stage 4 chronic kidney disease, or unspecified chronic kidney disease (principal); I50.23 Acute on chronic systolic (congestive) heart failure; J96.01 Acute respiratory failure with hypoxia; N39.0 Urinary tract infection, site not specified; E44.0 Moderate protein-calorie malnutrition; D64.9 Anemia, unspecified; E11.22 Type 2 diabetes mellitus with diabetic chronic kidney disease; E78.5 Hyperlipidemia, unspecified; E87.8 Other disorders of electrolyte and fluid balance, not elsewhere classified; I25.10 Atherosclerotic heart disease of native coronary artery without angina pectoris; I25.5 Ischemic cardiomyopathy; I27.20 Pulmonary hypertension, unspecified; E03.9 Hypothyroidism, unspecified; E87.6 Hypokalemia; L89.629 Pressure ulcer of left heel, unspecified stage; M48.061 Spinal stenosis, lumbar region without neurogenic claudication; E66.9 Obesity, unspecified; I34.0 Nonrheumatic mitral (valve) insufficiency; N18.9 Chronic kidney disease, unspecified; S20.401A Unspecified superficial injuries of right back wall of thorax, initial encounter; X58.XXXA Exposure to other specified factors, initial encounter; Z74.01 Bed confinement status; Z85.42 Personal history of malignant neoplasm of other parts of uterus; Z86.73 Personal history of transient ischemic attack (TIA), and cerebral infarction without residual deficits; I25.2 Old myocardial infarction; Z90.710 Acquired absence of both cervix and uterus; Z95.5 Presence of coronary angioplasty implant and graft; Z91.19 Patient's noncompliance with other medical treatment and regimen; Z99.81 Dependence on supplemental oxygen; Z88.0 Allergy status to penicillin; Z88.2 Allergy status to sulfonamides; Z88.8 Allergy status to other drugs, medicaments and biological substances; Z79.899 Other long term (current) drug therapy; Z79.02 Long term (current) use of antithrombotics/antiplatelets; Z79.4 Long term (current) use of insulin; Z79.82 Long term (current) use of aspirin; Z68.32 Body mass index [BMI] 32.0-32.9, adult; Y93.89 Activity, other specified; Y92.89 Other specified places as the place of occurrence of the external cause; Y99.8 Other external cause status
CPT/HCPCS: 36415; 36600; 71045; 80048; 81003; 82375; 82805; 82962; 83880; 84134; 84145; 84484; 93005; 93970; 94640; 99285; J1650; J1940; J1956; J3490; J7611

== ENCOUNTER 2019-04-14 20:17 | Inpatient (IN) | payer OTHER ==
[~2019-04-14] VITALS: Ht 165.1 cm; Wt 81.6 kg
[~2019-04-14 20:17] MED LIST changes: +AMLO5TAB88 PO; -ASPI-1393 PO; +COR12 PO; -COR6 PO; +FURO40TA5 PO; -HJ10 SUBCUT; -INSU100I28 SQ; -LEVO500T89 MT; +LISI2.5T47 PO; +POTA20TA82 MT
[2019-04-14] MEDS ORDERED: SODIUM CHLORIDE 0.9% 1,000 ML IV ONE (20:42)
[2019-04-14 21:46] LABS: BASOPHILS % 0.9 % (0.0-2.0); EOSINOPHILS % 3.1 % (0.0-5.0); HEMATOCRIT. 30.4 % (36.0-48.0); HEMOGLOBIN. 10.3 g/dL (12.0-16.0); LYMPHOCYTES % 17.6 % (20.0-50.0); MEAN CORPUSCULAR HEMOGLOBIN 31.1 pg (28.0-32.0); MEAN PLATELET VOLUME 8.9 fl (7.4-10.4); MONOCYTES % 6.2 % (2.0-8.0); NEUTROPHILS % 72.2 % (40.0-76.0); PLATELET 331 x1000/uL (130-400); RED CELL DISTRIBUTION WIDTH 15.9 % (11.6-14.6)
[2019-04-14 21:50] LABS: CHLORIDE 105 mEq/L (98-107)
[2019-04-15 00:07] LABS: CLARITY URINE CLEAR (CLEAR); COLOR URINE YELLOW (YELLOW); KETONES URINE NEGATIVE (NEGATIVE); LEUKOCYTE ESTERASE URINE TRACE (NEGATIVE); NITRITE URINE NEGATIVE (NEGATIVE); OCCULT BLOOD URINE 1+ (NEGATIVE); PROTEIN URINE 3+ (NEGATIVE); SPECIFIC GRAVITY URINE 1.011 (1.005-1.030); UROBILINOGEN URINE 0.2 E.U./dL (0.2-1.0)
[2019-04-15] MEDS ORDERED: FUROSEMIDE 40MG/4ML VIAL IVP SCH (00:45)
[2019-04-15] MEDS ORDERED: ACETAMINOPHEN 325MG TABLET PO PRN (07:00)
[2019-04-15] MEDS ORDERED: DIPHENHYDRAMINE 50MG/ML VIAL IV PRN (07:00)
[2019-04-15] MEDS ORDERED: DOCUSATE SODIUM 100MG CAPSULE PO PRN (07:00)
[2019-04-15] MEDS ORDERED: CLONIDINE 0.1MG TABLET PO PRN (07:00)
[2019-04-15] MEDS ORDERED: GUAIFENESIN 200MG/10ML SUGAR FREE UDC PO PRN (07:00)
[2019-04-15] MEDS ORDERED: HYDRALAZINE 20MG/ML VIAL IV PRN (07:00)
[2019-04-15] MEDS ORDERED: MAGNESIUM/ALUMINUM HYDROXIDE/SIMETHICONE 30ML UDC PO PRN (07:00)
[2019-04-15] MEDS ORDERED: HYDROCODONE/ACETAMINOPHEN 10/325MG TABLET PO PRN (07:00)
[2019-04-15] MEDS ORDERED: IPRATROPIUM/ALBUTEROL 0.5-3(2.5)MG/3ML NEB HHN PRN (07:00)
[2019-04-15 08:00] VITALS: BP 153/88
[2019-04-15 08:21] VITALS: BP 154/87
[2019-04-15] MEDS: LISINOPRIL 2.5MG TABLET PO SCH (09:22)
[2019-04-15] MEDS: CLOPIDOGREL 75MG TABLET PO SCH (09:22)
[2019-04-15] MEDS: LEVOTHYROXINE SODIUM 175MCG TABLET PO SCH (09:22)
[2019-04-15] MEDS: AMLODIPINE 5MG TABLET PO SCH ×2 (09:22→21:26)
[2019-04-15] MEDS: FAMOTIDINE 20MG TABLET PO SCH (09:23)
[2019-04-15] MEDS: FUROSEMIDE 40MG/4ML VIAL IVP SCH (09:23)
[2019-04-15] MEDS: CARVEDILOL 12.5MG TABLET PO SCH ×2 (09:23→21:26)
[2019-04-15 12:00] VITALS: BP 131/74
[2019-04-15 16:00] VITALS: BP 130/71
[2019-04-15 16:58] LABS: CREATINE KINASE 103 IU/L (26-192)
[2019-04-15 17:00] LABS: CREATINE KINASE MB FRACTION 4.4 ng/mL (0.5-3.6)
[2019-04-15] MEDS: SODIUM CHLORIDE 0.9% INJ 3ML FLUSH IVF SCH ×2 (17:44→21:27)
[2019-04-15 20:00] VITALS: BP 145/67
[2019-04-15] MEDS: ATORVASTATIN CALCIUM 40MG TABLET PO SCH (21:25)
[2019-04-15] MEDS: LORAZEPAM 2MG/ML CPJ IV PRN (21:46)
[2019-04-16] VITALS: BP 135/70
[2019-04-16 00:06] LABS: CREATINE KINASE 103 IU/L (26-192); CREATINE KINASE MB FRACTION 4.2 ng/mL (0.5-3.6)
[2019-04-16 04:00] VITALS: BP 122/58
[2019-04-16 06:09] LABS: CHLORIDE 106 mEq/L (98-107)
[2019-04-16] MEDS: SODIUM CHLORIDE 0.9% INJ 3ML FLUSH IVF SCH ×3 (06:17→22:15)
[2019-04-16 06:18] LABS: HDL CHOLESTEROL 48 mg/dL (40-59); T4 FREE 0.81 ng/dL (0.76-1.46)
[2019-04-16 06:20] LABS: BASOPHILS % 2.3 % (0.0-2.0); EOSINOPHILS % 4.1 % (0.0-5.0); HEMATOCRIT. 24.5 % (36.0-48.0); HEMOGLOBIN. 8.2 g/dL (12.0-16.0); LYMPHOCYTES % 25.2 % (20.0-50.0); MEAN CORPUSCULAR HEMOGLOBIN 30.8 pg (28.0-32.0); MEAN CORPUSCULAR VOLUME 91.5 fL (81.0-99.0); MEAN PLATELET VOLUME 8.9 fl (7.4-10.4); MONOCYTES % 8.1 % (2.0-8.0); NEUTROPHILS % 60.3 % (40.0-76.0); PLATELET 269 x1000/uL (130-400); RED BLOOD CELL COUNT 2.67 mill/uL (4.2-5.4); RED CELL DISTRIBUTION WIDTH 15.1 % (11.6-14.6)
[2019-04-16 06:22] LABS: LDL CHOLESTEROL 137 mg/dL (5-100)
[2019-04-16 08:00] VITALS: BP 128/63
[2019-04-16] MEDS: CARVEDILOL 12.5MG TABLET PO SCH (09:30)
[2019-04-16] MEDS: LISINOPRIL 2.5MG TABLET PO SCH (09:30)
[2019-04-16] MEDS: CLOPIDOGREL 75MG TABLET PO SCH (09:30)
[2019-04-16] MEDS: FAMOTIDINE 20MG TABLET PO SCH (09:30)
[2019-04-16] MEDS: LEVOTHYROXINE SODIUM 175MCG TABLET PO SCH (09:30)
[2019-04-16] MEDS: AMLODIPINE 5MG TABLET PO SCH ×2 (09:30→22:14)
[2019-04-16] MEDS: FUROSEMIDE 40MG/4ML VIAL IVP SCH (09:31)
[2019-04-16 12:00] VITALS: BP 118/74
[2019-04-16 16:00] VITALS: BP 119/61
[2019-04-16 20:00] VITALS: BP 126/71
[2019-04-16] MEDS: ATORVASTATIN CALCIUM 40MG TABLET PO SCH (22:13)
[2019-04-16] MEDS: LORAZEPAM 2MG/ML CPJ IV PRN (22:14)
[2019-04-17] VITALS: BP 118/74
[2019-04-17 04:00] VITALS: BP 110/76
[2019-04-17] MEDS: MORPHINE SULFATE 2 MG/ML CPJ (NOT FOR IM USE) IV PRN ×2 (04:51→21:16)
[2019-04-17] MEDS: LEVOTHYROXINE SODIUM 175MCG TABLET PO SCH (06:42)
[2019-04-17] MEDS: SODIUM CHLORIDE 0.9% INJ 3ML FLUSH IVF SCH ×3 (06:43→21:00)
[2019-04-17 08:00] VITALS: BP 98/71
[2019-04-17] MEDS: CARVEDILOL 12.5MG TABLET PO SCH ×2 (09:00→21:00)
[2019-04-17] MEDS: LISINOPRIL 2.5MG TABLET PO SCH (09:00)
[2019-04-17] MEDS: FUROSEMIDE 40MG/4ML VIAL IVP SCH (09:00)
[2019-04-17] MEDS: AMLODIPINE 5MG TABLET PO SCH ×2 (09:00→21:00)
[2019-04-17] MEDS: CLOPIDOGREL 75MG TABLET PO SCH (10:03)
[2019-04-17] MEDS: FAMOTIDINE 20MG TABLET PO SCH (10:03)
[2019-04-17 12:00] VITALS: BP 100/72
[2019-04-17 16:00] VITALS: BP 119/77
[2019-04-17 20:00] VITALS: BP 138/65
[2019-04-17] MEDS: ATORVASTATIN CALCIUM 40MG TABLET PO SCH (21:00)
[2019-04-18] VITALS: BP 132/77
[2019-04-18 04:00] VITALS: BP 125/65
[2019-04-18] MEDS: SODIUM CHLORIDE 0.9% INJ 3ML FLUSH IVF SCH ×3 (05:42→20:41)
[2019-04-18] MEDS: ONDANSETRON HCL 4MG/2ML INJ IV PRN ×3 (07:11→20:40)
[2019-04-18 08:00] VITALS: BP 134/81
[2019-04-18 08:01] LABS: BASOPHILS % 1.1 % (0.0-2.0); EOSINOPHILS % 2.7 % (0.0-5.0); HEMATOCRIT. 25.4 % (36.0-48.0); HEMOGLOBIN. 8.6 g/dL (12.0-16.0); LYMPHOCYTES % 17.1 % (20.0-50.0); MEAN CORPUSCULAR HEMOGLOBIN 30.8 pg (28.0-32.0); MEAN CORPUSCULAR VOLUME 91.4 fL (81.0-99.0); MEAN PLATELET VOLUME 9.1 fl (7.4-10.4); MONOCYTES % 6.3 % (2.0-8.0); NEUTROPHILS % 72.8 % (40.0-76.0); PLATELET 262 x1000/uL (130-400); RED BLOOD CELL COUNT 2.78 mill/uL (4.2-5.4); RED CELL DISTRIBUTION WIDTH 15.3 % (11.6-14.6)
[2019-04-18] MEDS ORDERED: HALOPERIDOL LACTATE 5MG/ML VIAL IM PRN (09:15)
[2019-04-18 12:00] VITALS: BP 129/72
[2019-04-18] MEDS: FUROSEMIDE 40MG/4ML VIAL IVP SCH (12:09)
[2019-04-18] MEDS: LISINOPRIL 2.5MG TABLET PO SCH (13:22)
[2019-04-18] MEDS: CLOPIDOGREL 75MG TABLET PO SCH (13:23)
[2019-04-18] MEDS: FAMOTIDINE 20MG TABLET PO SCH (13:23)
[2019-04-18] MEDS: LEVOTHYROXINE SODIUM 175MCG TABLET PO SCH (13:23)
[2019-04-18 16:00] VITALS: BP 121/60
[2019-04-18 20:00] VITALS: BP 116/60
[2019-04-18] MEDS: AMLODIPINE 5MG TABLET PO SCH (20:40)
[2019-04-18] MEDS: ATORVASTATIN CALCIUM 40MG TABLET PO SCH (20:40)
[2019-04-18] MEDS: CARVEDILOL 12.5MG TABLET PO SCH (20:40)
[2019-04-19] VITALS: BP 123/58
[2019-04-19] MEDS: MORPHINE SULFATE 2 MG/ML CPJ (NOT FOR IM USE) IV PRN (02:30)
[2019-04-19 04:00] VITALS: BP 123/69
[2019-04-19] MEDS: SODIUM CHLORIDE 0.9% INJ 3ML FLUSH IVF SCH (05:30)
[2019-04-19 08:00] VITALS: BP 124/77
[2019-04-19] MEDS: AMLODIPINE 5MG TABLET PO SCH (09:21)
[2019-04-19] MEDS: FUROSEMIDE 40MG/4ML VIAL IVP SCH (09:21)
[2019-04-19] MEDS: CARVEDILOL 12.5MG TABLET PO SCH (09:22)
[2019-04-19] MEDS: LISINOPRIL 2.5MG TABLET PO SCH (09:22)
[2019-04-19] MEDS: CLOPIDOGREL 75MG TABLET PO SCH (09:22)
[2019-04-19] MEDS: LEVOTHYROXINE SODIUM 175MCG TABLET PO SCH (09:22)
[2019-04-19] MEDS: FAMOTIDINE 20MG TABLET PO SCH (09:23)
[2019-04-19 10:38] LABS: HEMATOCRIT 26.6 % (36.0-48.0); HEMOGLOBIN 8.9 g/dL (12.0-16.0); MEAN CORPUSCULAR HEMOGLOBIN 30.8 pg (28.0-32.0); PLATELET 247 x1000/uL (130-400); RED BLOOD CELL COUNT 2.89 mill/uL (4.2-5.4); RED CELL DISTRIBUTION WIDTH 15.7 % (11.6-14.6)
[2019-04-19 12:00] VITALS: BP 110/56
[2019-04-19 14:11] VITALS: BP 110/56
[2019-04-19 16:00] VITALS: BP 101/53
== END 2019-04-19 18:47 | disposition home or self-care (01) | DRG 291 ==
LOC: ER 20:17 → 7WST 04-15 01:08 → ENRESERV 04-15 05:07 → 7WST 04-15 06:49
PROVIDERS: ADMIT Internal Medicine; ATTEND Internal Medicine
DX: I13.0 Hypertensive heart and chronic kidney disease with heart failure and stage 1 through stage 4 chronic kidney disease, or unspecified chronic kidney disease (principal); J96.00 Acute respiratory failure, unspecified whether with hypoxia or hypercapnia; I50.43 Acute on chronic combined systolic (congestive) and diastolic (congestive) heart failure; E46 Unspecified protein-calorie malnutrition; N18.9 Chronic kidney disease, unspecified; E03.9 Hypothyroidism, unspecified; I25.10 Atherosclerotic heart disease of native coronary artery without angina pectoris; D64.9 Anemia, unspecified; E11.22 Type 2 diabetes mellitus with diabetic chronic kidney disease; E78.5 Hyperlipidemia, unspecified; Z74.01 Bed confinement status; Z85.42 Personal history of malignant neoplasm of other parts of uterus; Z86.73 Personal history of transient ischemic attack (TIA), and cerebral infarction without residual deficits; Z95.5 Presence of coronary angioplasty implant and graft; Z79.899 Other long term (current) drug therapy; Z88.0 Allergy status to penicillin; Z88.2 Allergy status to sulfonamides; Z88.8 Allergy status to other drugs, medicaments and biological substances; Z68.30 Body mass index [BMI] 30.0-30.9, adult; Z90.710 Acquired absence of both cervix and uterus
CPT/HCPCS: 36415; 71045; 80048; 80061; 81003; 82550; 82553; 82962; 83880; 84134; 84439; 84443; 84484; 85027; 93005; 93306; 93970; 99285; A6261; J1630; J1940; J2060; J2270; J2405; J7030